=== PATIENT | female | born 1965 | race Caucasian/White ===

== ENCOUNTER 2016-06-28 19:31 | Emergency (ER) | payer OTHER ==
[2016-06-28 19:37] VITALS: RESP 17
[2016-06-28] MEDS ORDERED: IPRATROPIUM/ALBUTEROL 3 ML DEYVIAL IH ONE (20:00)
--- NOTE | 2016-06-28 20:02 | EDPHY ---
H & P Stated Complaint: persistent, painful cough x 1 week Time Seen by Provider: 06/28/16 19:55 HPI/ROS: CHIEF COMPLAINT: Cough HISTORY OF PRESENT ILLNESS: Patient is a 51-year-old female who comes to the emergency department complaining of persistent cough since Friday. She has had intermittent fevers as well as chest congestion. She denies chest pain shortness of breath. She denies sinus congestion. She does have mild ear pain. No abdominal pain. REVIEW OF SYSTEMS: Constitutional: denies: chills, fever, recent illness, recent injury EENTM: denies: blurred vision, double vision, nose congestion Respiratory: See HPI Cardiac: denies: chest pain, irregular heart rate, lightheadedness, palpitations Gastrointestinal/Abdominal: denies: abdominal pain, diarrhea, nausea, vomiting, blood streaked stools Genitourinary: denies: dysuria, frequency, hematuria, pain Musculoskeletal: denies: joint pain, muscle pain Skin: denies: lesions, rash, jaundice, bruising Neurological: denies: headache, numbness, paresthesia, tingling, dizziness, weakness Hematologic/Lymphatic: denies: blood clots, easy bleeding, easy bruising Immunologic/allergic: denies: HIV/AIDS, transplant EXAM: GENERAL: Well-appearing, well-nourished and in no acute distress. HEAD: Atraumatic, normocephalic. EYES: Pupils equal round and reactive to light, extraocular movements intact, sclera anicteric, conjunctiva are normal. ENT: TMs normal, nares patent, oropharynx clear without exudates. Moist mucous membranes. NECK: Normal range of motion, supple without lymphadenopathy or JVD. LUNGS: Rhonchi and left lower lobe, no wheezing HEART: Regular rate and rhythm without murmurs, rubs or gallops. ABDOMEN: Soft, nontender, normoactive bowel sounds. No guarding, no rebound. No masses appreciated. BACK: No CVA tenderness, no spinal tenderness, step-offs or deformities EXTREMITIES: Normal range of motion, no pitting or edema. No clubbing or cyanosis. NEUROLOGICAL: Cranial nerves II through XII grossly intact. Normal speech, normal gait. 5/5 strength, normal movement in all extremities, normal sensation PSYCH: Normal mood, normal affect. SKIN: Warm, dry, normal turgor, no visible rashes or lesions. Source: Patient, Family Exam Limitations: Language barrier (Daughter interpreting) - Personal History LMP (Females 10-55): Post Menopausal Current Tetanus/Diphtheria Vaccine: Yes Tetanus Vaccine Date: 2008 - Medical/Surgical History Hx Asthma: No Hx Chronic Respiratory Disease: No Hx Diabetes: Yes Hx Cardiac Disease: No Hx Renal Disease: No Hx Cirrhosis: No Hx Alcoholism: No Hx HIV/AIDS: No Hx Splenectomy or Spleen Trauma: No Other PMH: PMHx: HTN, Rheumatoid arthritis,diabetes, back pain. PSHx: cholecystectomy, L shoulder surgery, L foot surgery - Family History Significant Family History: Hypertension - Social History Smoking Status: Never smoked Alcohol Use: Sober Drug Use: None Constitutional: Initial Vital Signs Temperature (C) 36.2 C 06/28/16 19:32 Heart Rate 112 H 06/28/16 19:32 Respiratory Rate 17 06/28/16 19:32 Blood Pressure 197/113 H 06/28/16 19:32 O2 Sat (%) 97 06/28/16 19:32 O2 Delivery Mode Room Air Allergies/Adverse Reactions: Shellfish *RETIRED-02/10/12 [Shellfish] Allergy (Severe, Verified 08/06/15 17:41 ) Anaphylaxis SHRIMP Allergy (Severe, Uncoded 05/20/16 10:06) Anaphylaxis Home Medications: Medication Instructions Recorded Methotrexate 05/20/16 Oseltamivir Phosphate [Tamiflu 75 75 mg PO BID #10 cap 05/20/16 mg (RX)] Prednisone 05/20/16 metFORMIN HCL 05/20/16 AZITHROMYCIN [Z-PACK] 250 mg PO DAILY #4 tab 06/28/16 Medical Decision Making - Diagnostics Imaging: X-ray: chest x-ray was obtained. I viewed the images myself on the PACS system. My interpretation of the images is: Consistent with bronchitis. The radiologist interpretation is pending. ED Course/Re-evaluation: 8:30 p.m. we discussed the patient's x-ray results. She states that the albuterol did help. I will give her prescription for this as well as azithromycin. She is happy with this plan and declines any further workup or testing. She is well appearing. Differential Diagnosis: Partial list of the Differential diagnosis considered include but were not limited to; bronchitis, pneumonia, upper respiratory tract infection and although unlikely based on the history and physical exam, I also considered sepsis, acute coronary disease. I discussed these differential diagnoses and the plan with the patient as well as the usual and expected course. The patient understands that the diagnosis is provisional and that in medicine we are not always correct and that further workup is often warranted. Usual and customary warnings were given. All of the patient's questions were answered. The patient was instructed to return to the emergency department should the symptoms at all worsen or return, otherwise to followup with the physician as we discussed. - Data Points Medications Given: Discontinued Medications Albuterol Sulfate (Proventil Inh Prepack) 1 mdi TAKEHOME EDNOW ONE Stop: 06/28/16 20:32 Last Admin: 06/28/16 20:46 Dose: 1 mdi Albuterol/Ipratropium (Duoneb) 3 ml IH EDNOW ONE Stop: 06/28/16 20:01 Last Admin: 06/28/16 20:12 Dose: 3 ml Azithromycin (Zithromax) 500 mg PO EDNOW ONE PRN Reason: Protocol Stop: 06/28/16 20:30 Last Admin: 06/28/16 20:40 Dose: 500 mg Departure - Departure Disposition: Home, Routine, Self-Care Clinical Impression: Bronchitis Condition: Fair Instructions: Acute Bronchitis (ED), Albuterol (By breathing) Referrals: Josselin Booth MD [Primary Care Provider] - As per Instructions Prescriptions: AZITHROMYCIN [Z-PACK] 250 mg PO DAILY #4 tab Print Language: Bangladeshi
[2016-06-28] MEDS ORDERED: AZITHROMYCIN 250 MG TAB PO ONE (20:29)
[2016-06-28] MEDS ORDERED: ALBUTEROL INH PREPACK MDI TAKEHOME ONE (20:31)
--- NOTE | 2016-06-28 20:41 | DX ---
Chest, Two Views at 1939 hours History: Dyspnea. Comparison: May 2016 Findings: Cardiac silhouette is within normal range. Bilateral peribronchial thickening. No pneumonia , congestive heart failure, pleural effusion, or pneumothorax. Impression: 1. Bronchitis. 2. No definite pneumonia.
[2016-06-28 20:47] VITALS: BP 154/78; PULSE 110; TEMP 98.8; O2SAT 95
== END 2016-06-28 20:46 | disposition home or self-care (01) ==
DX: J20.9 Acute bronchitis, unspecified (principal); I10 Essential (primary) hypertension; E11.9 Type 2 diabetes mellitus without complications

== ENCOUNTER → 2016-07-15 | Outpatient (CLI) | payer OTHER ==
--- NOTE | 2016-07-15 17:18 | DX ---
Hip Unilateral Min 2 Views Left History: Left hip pain. Findings: Hip joint spaces are symmetric and normal. No fracture identified. Symphysis pubis and sacr oiliac joints appear unremarkable. Vascular calcifications are present in the proximal thighs bilater ally. Impression: Negative radiographs of the left hip.
== END ==
LOC: FIMAGING 15:58
PROVIDERS: ATTEND Family Medicine
DX: M25.552 Pain in left hip (principal)

== ENCOUNTER 2017-09-16 16:05 | Inpatient (IN) | payer OTHER ==
[2017-09-16] MEDS ORDERED: HYDROmorphONE/DILAUDID 1 MG/ML INJ IVP ONE (16:42)
[2017-09-16] MEDS ORDERED: HYDROmorphONE/DILAUDID 2 MG/ML INJ ONE (16:57)
[2017-09-16] MEDS ORDERED: DEXAMETHASONE 4 MG/ML VIAL IVP ONE (17:10)
[2017-09-16] MEDS ORDERED: DIAZEPAM 5 MG TAB PO ONE (17:10)
[2017-09-16] MEDS ORDERED: ACETAMINOPHEN 500 MG TAB PO ONE (17:10)
--- NOTE | 2017-09-16 17:16 | EDPHY ---
H & P Stated Complaint: back pain Source: Patient Exam Limitations: No limitations - Personal History LMP (Females 10-55): Post Menopausal Current Tetanus/Diphtheria Vaccine: Yes Current Tetanus Diphtheria and Acellular Pertussis (TDAP): Yes Tetanus Vaccine Date: 2008 - Medical/Surgical History Hx Asthma: No Hx Chronic Respiratory Disease: No Hx Diabetes: Yes Hx Cardiac Disease: No Hx Renal Disease: No Hx Cirrhosis: No Hx Alcoholism: No Hx HIV/AIDS: No Hx Splenectomy or Spleen Trauma: No Other PMH: PMHx: HTN, Rheumatoid arthritis,diabetes, back pain. PSHx: cholecystectomy, L shoulder surgery, L foot surgery, back surgery, - Family History Significant Family History: No pertinent family hx - Social History Smoking Status: Never smoked Alcohol Use: Sober Drug Use: None Time Seen by Provider: 09/16/17 16:58 HPI/ROS: CHIEF COMPLAINT: Back pain HISTORY OF PRESENT ILLNESS: Patient is a 52-year-old female with a history of back pain and sciatica and some kind of low back surgery in 2011. She has not followed up with a e learning specialist since then. She states that she has daily back pain radiating down her left leg but that today when she woke up from bed it was severe. She has not been able to stand up. She has not had any bowel or bladder incontinence but she did have back in 2012 prior to her previous surgery. She has not had a fever. She is diabetic. No IV drug abuse. No history of cancer. She states that she does not think her leg is weak but that it is in so much pain she cannot move it. She states that she also has some pain in her thoracic spine. REVIEW OF SYSTEMS: Constitutional: denies: chills, fever, recent illness, recent injury EENTM: denies: blurred vision, double vision, nose congestion Respiratory: denies: cough, shortness of breath Cardiac: denies: chest pain, irregular heart rate, lightheadedness, palpitations Gastrointestinal/Abdominal: denies: abdominal pain, diarrhea, nausea, vomiting, blood streaked stools Genitourinary: denies: dysuria, frequency, hematuria, pain Musculoskeletal: See HPI Skin: denies: lesions, rash, jaundice, bruising Neurological: denies: headache, numbness, paresthesia, tingling, dizziness, weakness Hematologic/Lymphatic: denies: blood clots, easy bleeding, easy bruising Immunologic/allergic: denies: HIV/AIDS, transplant EXAM: GENERAL: Crying, still in wheelchair. HEAD: Atraumatic, normocephalic. EYES: Pupils equal round and reactive to light, extraocular movements intact, sclera anicteric, conjunctiva are normal. ENT: TMs normal, nares patent, oropharynx clear without exudates. Moist mucous membranes. NECK: Normal range of motion, supple without lymphadenopathy or JVD. LUNGS: Breath sounds clear to auscultation bilaterally and equal. No wheezes rales or rhonchi. HEART: Regular rate and rhythm without murmurs, rubs or gallops. ABDOMEN: Soft, nontender, normoactive bowel sounds. No guarding, no rebound. No masses appreciated. BACK: No CVA tenderness, no spinal tenderness, step-offs or deformities EXTREMITIES: Pain radiating down left gluteus and posterior leg. Able to wiggle toes and has normal sensation bilaterally. Will not lift them off the wheelchair. Will not get out of the wheelchair onto the bed. Normal range of motion of upper extremities, no pitting or edema. Normal pulses. No clubbing or cyanosis. NEUROLOGICAL: Cranial nerves II through XII grossly intact. Normal speech. Is will not move legs because of pain. States that they do not feel weak., can wiggle toes, normal sensation diffusely PSYCH: Crying SKIN: Warm, dry, normal turgor, no visible rashes or lesions. (Jd Kothari) Constitutional: Initial Vital Signs Temperature (C) 37.2 C 09/16/17 16:11 Heart Rate 136 H 09/16/17 16:11 Respiratory Rate 20 09/16/17 16:11 Blood Pressure 185/110 H 09/16/17 16:11 O2 Sat (%) 96 09/16/17 16:11 O2 Delivery Mode Nasal Cannula O2 (L/minute) 2 Allergies/Adverse Reactions: Shellfish *RETIRED-02/10/12 [Shellfish] Allergy (Severe, Verified 09/16/17 16:10 ) Anaphylaxis SHRIMP Allergy (Severe, Uncoded 09/16/17 16:10) Anaphylaxis Home Medications: Medication Instructions Recorded Methotrexate Sodium [Rheumatrex] 6 each PO SA 05/20/16 metFORMIN HCL [Glucophage 1000 mg] 1,000 mg PO BIDMEAL 05/20/16 predniSONE [Christina] 7 mg PO DAILY18 05/20/16 oxyCODONE/APAP 5/325 [Percocet 2 tab PO DAILY 09/16/17 5/325 (*)] Carboxymethylcellulose 1% [Refresh 1 drop EACHEYE DAILY PRN 09/17/17 Celluvisc (*)] Certolizumab Pegol [CIMZIA] 0 mg SQ Q30D 09/17/17 Folic Acid [Folic Acid 1 MG (*)] 1 mg PO DAILY18 09/17/17 Insulin Aspart [novoLOG] 18 unit SC BIDMEAL 09/17/17 Insulin Detemir [Levemir] 20 units SQ DAILY 09/17/17 Insulin Detemir [Levemir] 30 unit SQ HS 09/17/17 Lisinopril [Zestril 20 mg (*)] 20 mg PO DAILY18 09/17/17 Simvastatin [Zocor] 20 mg PO DAILY18 09/17/17 Vitamin B Complex [Vitamin B 1 each PO DAILY 09/17/17 Complex (OTC)] oxyCODONE/APAP 5/325 [Percocet 1 tab PO HS PRN 09/17/17 5/325 (*)] Acetaminophen [Tylenol 325mg (*)] 650 mg PO Q4HRS PRN tab 09/18/17 Cyclobenzaprine [Flexeril 10 MG 10 mg PO BID PRN #20 tab 09/18/17 (*)] Gabapentin [Neurontin 300 MG (*)] 300 mg PO TID #90 cap 09/18/17 Ibuprofen [Motrin (*)] 600 mg PO TID PRN #60 tab 09/18/17 Medical Decision Making - Diagnostics EKG Interpretation: EKG interpreted by me shows sinus tachycardia with normal interval. Left axis deviation. QRS is otherwise normal there is no significant ST elevation or depression. No arrhythmia. Heart rate is 118 (Elijah Carvajal) Imaging Results: MRI of the thoracic spine is normal. Reviewed by me and discussed with Dr. Rivera MRI lumbar spine shows disc bulges at L3-4, L4-5 with some neural foraminal narrowing. Also disc bulge at L5-S1. No evidence for cauda equina syndrome. Again reviewed by me and discussed with Dr. Rivera (Elijah Carvajal) ED Course/Re-evaluation: Patient signed out to me by Dr. Kothari at 9:00 p.m.. We are awaiting results of lumbar and thoracic MRI. I saw the patient at 10:00 p.m. With shipping inspector Tara. Patient is found to be tachycardic at about 125 beats per minute. She tells me that she had an episode of chest discomfort while she was in the MRI machine but that she had been upset. She really does not have chest discomfort now or shortness of breath. However I reviewed her vital signs and from the initial triage the patient has been tachycardic. D-dimer and EKG were ordered by the nurse. Her D-dimer is found to be significantly elevated at 3.75. Patient is given a L of saline and CT angiogram of her chest is ordered as well as a troponin. The patient and family and I discussed this treatment plan. They express understanding and agreement Care is transferred to Dr. Marquez at 10:45 p.m. (Elijah Carvajal) 2224: Patient return from MRI noted to be tachycardic. Her back pain in the low lumbar region is improved with pain medicine here. However shortly after returning to MRI she did state to the nurse that she had some chest discomfort 3rd. This was very brief. However in the setting of chest pain and tachycardia a D-dimer was ordered and is positive. Will proceed with CT angiogram of the chest to make sure she does not have a pulmonary embolism. We did obtain an EKG The EKG shows sinus tachycardia rate of 118, no ST elevation no ST depression no significant T-wave abnormalities. Plan for this patient 2nd L fluid, check troponin and CT angiogram of the chest. 2318: CT angiogram of the chest shows no evidence of pulmonary embolism. This was called to me by Dr. Rivera. Patient's current heart rate down to 110 after 2nd L fluid. Oxygen saturation 96% on room air. Will re-evaluate in terms of low back pain. Troponin is negative. 2341: I did attempt to have this patient ambulate however her pain was too severe in her left lumbar region radiating down her left leg. No red flags. No bowel bladder incontinence no fever MRIs have been reviewed. Plan will be for admission to the hospital for intractable back pain despite prolonged ER course multiple pain medications. I updated the patient as well as the family at bedside they are comfortable with her being admitted for pain control and would prefer this rather than her going home. In terms of her chest pain her EKG is nonischemic troponin was negative. D- dimer was elevated but she has a negative pulmonary angiogram. She has not developed any worsening chest pain she is resting comfortably at this time. Spoke with the hospitalist service Dr. James who agrees to admit. (Naldo Marquez) Differential Diagnosis: Patient has exacerbation low back pain. There is no evidence for cauda equina syndrome. However the patient is persistently tachycardic in the emergency department. She has an elevated D-dimer. My concern is the patient also has pulmonary embolus. (Elijah Carvjaal) - Data Points Laboratory Results: Laboratory Results 09/16/17 16:40 09/16/17 16:40 Medications Given: Discontinued Medications Acetaminophen (Tylenol) 1,000 mg PO EDNOW ONE Stop: 09/16/17 17:11 Last Admin: 09/16/17 17:30 Dose: 1,000 mg Hydrocodone Bitart/Acetaminophen ([place] 5/325) 1 - 2 tab PO Q4HRS PRN PRN Reason: Pain, Moderate Able to Take PO Stop: 09/27/17 00:17 Last Admin: 09/17/17 07:11 Dose: 2 tab Atorvastatin Calcium (Lipitor) 10 mg PO DAILY18 JANE Stop: 03/16/18 17:59 Last Admin: 09/17/17 17:47 Dose: 10 mg Cyclobenzaprine HCl (Flexeril) 10 mg PO TID PRN PRN Reason: Spasms Stop: 03/16/18 08:59 Last Admin: 09/17/17 01:16 Dose: 10 mg Dexamethasone (Decadron Injection) 10 mg IVP EDNOW ONE Stop: 09/16/17 17:11 Last Admin: 09/16/17 17:31 Dose: 10 mg Diazepam (Valium) 5 mg PO EDNOW ONE Stop: 09/16/17 17:11 Last Admin: 09/16/17 17:31 Dose: 5 mg Fentanyl (Sublimaze) 0 mcg IVP ONCALL PRN PRN Reason: Per provider during procedure Stop: 09/17/17 19:27 Last Admin: 09/17/17 18:40 Dose: 75 mcg Folic Acid (Folic Acid) 1 mg PO DAILY18 [facility] Stop: 03/16/18 17:59 Last Admin: 09/17/17 17:48 Dose: 1 mg Gabapentin (Neurontin) 300 mg PO TID [facility] Stop: 03/16/18 08:59 Last Admin: 09/18/17 08:22 Dose: 300 mg Hydromorphone HCl (Dilaudid) 1 mg IVP EDNOW ONE Stop: 09/16/17 16:43 Last Admin: 09/16/17 17:01 Dose: 1 mg Hydromorphone HCl (Dilaudid) 1 mg IVP EDNOW ONE Stop: 09/16/17 23:36 Last Admin: 09/16/17 23:42 Dose: 1 mg Sodium Chloride (Ns) 1,000 mls @ 1,000 mls/hr IV EDNOW ONE PRN Reason: Protocol Stop: 09/16/17 19:33 Last Admin: 09/16/17 18:42 Dose: 1,000 mls Sodium Chloride (Ns) 1,000 mls @ 0 mls/hr IV ONCE ONE; Wide Open PRN Reason: Protocol Stop: 09/16/17 22:12 Last Admin: 09/16/17 22:37 Dose: 1,000 mls Insulin Human Lispro (Humalog Lispro) 0 unit SC TIDMEAL JANE PRN Reason: Protocol Stop: 03/16/18 07:59 Last Admin: 09/18/17 13:24 Dose: Not Given Insulin Human Lispro (Humalog Lispro) 0 unit SC HS JANE PRN Reason: Protocol Stop: 03/16/18 20:59 Last Admin: 09/18/17 01:10 Dose: Not Given Insulin Human Lispro (Humalog Lispro) 10 unit SC ONCE ONE Stop: 09/18/17 00:48 Last Admin: 09/18/17 01:13 Dose: 10 units Insulin Human Regular (Humulin R) 10 unit IVP EDNOW ONE Stop: 09/16/17 18:35 Last Admin: 09/16/17 18:41 Dose: 10 units Ketorolac Tromethamine (Toradol) 15 mg IVP EDNOW ONE Stop: 09/16/17 19:58 Last Admin: 09/16/17 20:06 Dose: 15 mg Ketorolac Tromethamine (Toradol) 15 mg IVP Q6HRS [facility] Stop: 09/19/17 00:01 Last Admin: 09/18/17 14:51 Dose: Not Given Lisinopril (Zestril) 20 mg PO DAILY18 JANE Stop: 03/16/18 17:59 Last Admin: 09/17/17 17:47 Dose: 20 mg Miscellaneous Medication (Insulin Detemir [Levemir]) 20 units SQ DAILY JANE Stop: 03/17/18 08:59 Last Admin: 09/18/17 09:06 Dose: 20 unit Miscellaneous Medication (Insulin Detemir [Levemir]) 30 unit SQ HS JANE Stop: 03/16/18 20:59 Last Admin: 09/17/17 22:25 Dose: 30 units Oxycodone/Acetaminophen (Percocet 5/325) 1 - 2 tab PO Q6H PRN; Protocol PRN Reason: Pain, Breakthrough Stop: 09/27/17 08:44 Last Admin: 09/18/17 13:55 Dose: 1 tab Prednisone (Prednisone) 5 mg PO DAILY18 JANE Stop: 03/16/18 17:59 Last Admin: 09/17/17 17:48 Dose: 5 mg Prednisone (Prednisone) 2 mg PO DAILY18 JANE Stop: 03/16/18 17:59 Last Admin: 09/17/17 18:21 Dose: 2 mg Vitamin B Complex (Vitamin B Complex) 1 ea PO DAILY JANE Stop: 03/16/18 08:59 Last Admin: 09/18/17 08:22 Dose: 1 ea Departure - Departure Disposition: [facility] Inpatient Acute Clinical Impression: Back pain Qualifiers: Back pain location: low back pain Chronicity: acute Back pain laterality: left Sciatica presence: with sciatica Sciatica laterality: sciatica of left side Qualified Code(s): M54.42 - Lumbago with sciatica, left side Condition: Good
[2017-09-16 17:52] LABS: PLATELET COUNT 343 10^3/uL (150-400)
[2017-09-16] MEDS ORDERED: INSULIN REGULAR HUMAN 100 UNIT/ML UNIT IVP ONE (18:34)
[2017-09-16] MEDS ORDERED: NS 1,000 ML IV ONE ×2 (18:34→22:11)
[2017-09-16] MEDS ORDERED: KETOROLAC 15 MG/1 ML SDV IVP ONE (19:57)
[2017-09-16] MEDS ORDERED: GADOBUTROL 10 ML VIAL IVP ONE (20:22)
--- NOTE | 2017-09-16 21:51 | CPEKG ---
Heart Rate: 118 RR Interval: 508 P-R Interval: 148 QRSD Interval: 70 QT Interval: 308 QTC Interval: 432 P [place]: 44 QRS [place]: 8 T Wave [place]: 44 EKG Severity - BORDERLINE ECG - EKG Impression: SINUS TACHYCARDIA EKG Impression: BORDERLINE T WAVE ABNORMALITIES Electronically Signed By: Elijah Carvajal 16-Sep-2017 22:49:53
[2017-09-16] MEDS ORDERED: IOPAMIDOL (ISOVUE 370) 100 ML BTL IV ONE (22:13)
[2017-09-16] MEDS ORDERED: HYDROmorphONE/DILAUDID 2 MG/ML INJ IVP ONE (23:35)
[2017-09-17] MEDS ORDERED: ONDANSETRON 4 MG/2 ML VIAL IVP PRN (00:18)
[2017-09-17] MEDS ORDERED: HYDROmorphone HCL/NS 0.5 MG/ML SYR IVP PRN ×2 (00:18→01:40)
[2017-09-17] MEDS ORDERED: ACETAMINOPHEN 325 MG TAB PO PRN (00:18)
[2017-09-17] MEDS ORDERED: CYCLOBENZAPRINE 10 MG TAB PO PRN (01:01)
[2017-09-17] MEDS: HYDROCODONE/APAP 5/325 TAB PO PRN ×2 (01:15→07:11)
[2017-09-17] MEDS ORDERED: D50W 25 GM/50 ML VIAL IVP PRN (01:37)
--- NOTE | 2017-09-17 01:52 | PDGENHP ---
History and Physical - Chief Complaint Back pain - History of Present Illness Source-patient provides history in Stat[employer]. She requests family translate but urgent care nurse practitioner available. I am able to communicate with the patient in limited Stateless myself. Case discussed with ED provider and EMR was reviewed. HPI - very pleasant 52-year-old female with past medical history significant for DM 2 on metformin, RA on DMARD therapy and reported injection therapy, HTN, chronic back pain/sciatica who presents to the emergency department earlier in the day with complaints of acute on chronic low back pain with groin pain. Patient denies any acute injuries or trauma. She states she was in her usual state of health yesterday until sometime in the latter morning or early afternoon patient reports she got up and went to the kitchen to make herself some morning coffee she sat down and was doing fine until she tried to get up from her chair at which point she states that she felt a pop in her lower back with subsequent radiating pain into her groin bilaterally as well as down her left buttock to her knee. Patient denies any falls. She has not had any fevers but has had some chills today. No nausea vomiting. No cough shortness of breath. No abdominal pain or diarrhea. No dysuria or hematuria. Patient reports that her pain was so severe that she could no longer stand on her own or get up. Patient denies any bowel or bladder retention or incontinence. Patient does note a little bit of change in sensation to her left anteromedial thigh. History Information - Allergies/Home Medication List Allergies/Adverse Reactions: Shellfish *RETIRED-02/10/12 [Shellfish] Allergy (Severe, Verified 09/16/17 16:10 ) Anaphylaxis SHRIMP Allergy (Severe, Uncoded 09/16/17 16:10) Anaphylaxis Home Medications: Methotrexate 05/20/16 [Last Taken Unknown] Prednisone 05/20/16 [Last Taken Unknown] metFORMIN HCL 05/20/16 [Last Taken Unknown] Oxycodone HCl 09/16/17 [Last Taken Unknown] I have personally reviewed and updated: family history, medical history, social history, surgical history - Past Medical History degenerative disc disease, diabetes type 2, hypertension Additional medical history: RA, chronic back pain/sciatica - Surgical History Reports: cholecystectomy Additional surgical history: Cholecystectomy, x2, lumbar spine surgery , left shoulder surgery, left foot surgery - Family History Additional family history: RA, dm 2 - Social History Smoking Status: Never smoked Alcohol Use: None Drug Use: None Additional social history: Patient is lives with her spouse and children. Cor status-full. Review of Systems Review of Systems: ROS: 10pt was reviewed & negative except for what was stated in HPI & below Constitutional: Reports: chills, weakness (See HPI). Denies: fever, recent illness EENMT: Reports: other (No nasal discharge.). Denies: blurred vision, nose congestion, sore throat Cardiac: Reports: no symptoms. Denies: chest pain, palpitations Respiratory: Reports: no symptoms. Denies: cough, shortness of breath, wheezing Gastrointestinal: Reports: no symptoms. Denies: vomitting, abdominal pain, diarrhea, nausea Genitourinary: Denies: dysuria, hematuria Muscolosketal: Reports: back pain, other (Groin pain see HPI). Denies: joint pain Skin: Reports: no symptoms. Denies: change in color, lesions, rash Neurological: Reports: no symptoms, numbness, weakness. Denies: anxiety, depressed, headache, tremors Hematologic/Lymphatic: Denies: anemia, blood clots Physical Exam Physical Exam: Selected Entries 09/16/17 16:11 Blood Pressure Automatic Method Heart Rate 136 H Respiratory 20 Rate O2 Sat (%) 96 Temperature (C) 37.2 C Blood Pressure 185/110 H Mean Arterial 135 H Pressure (MAP) O2 Delivery Room Air Mode Temperature Oral Source Temp Pulse Resp BP Pulse Ox 36.9 C 108 H 18 142/79 H 96 09/17/17 00:55 09/17/17 00:55 09/17/17 00:55 09/17/17 00:55 09/17/17 00:55 O2 (L/minute) 2 Constitutional: appears nourished, uncomfortable, other (Patient without any acute distress while lying still. She does appear uncomfortable with any kind of movement and in with increased in distress and respiratory effort.) Eyes: PERRL, anicteric sclera, EOMI, No scleral injection Ears, Nose, Mouth, Throat: moist mucous membranes, other (No nasal discharge.), No poor dentition Cardiovascular: no murmur, rub, or gallop, pulses symmetric bilaterally, tachycardia, edema (Trace bilateral lower extremity.), other (Regular rhythm.) Peripheral Pulses: 1+: dorsalis-pedis (R), dorsalis-pedis (L) Respiratory: no respiratory distress (Patient with increased work of breathing with complaints of pain and movement.), clear to auscultation, No reduced air movement, No expiratory wheeze, No inspiratory crackles Gastrointestinal: normoactive bowel sounds, soft, non-tender abdomen, no palpable masses, other (Obese abdomen.), No guarding, No distension Genitourinary: no bladder tenderness, other (Patient with complaints of left greater than right flank pain question of superficial CVA tenderness.), No plaza in urethra Skin: warm, other (Patient with the facial flushing which is new), No erythema, No rash Musculoskeletal: muscular tenderness (Multiple trigger points bilateral buttock. Left trochanteric bursa. And bilateral groin over the insertion sites of the adductors.) Neurologic: AAOx3, sensation intact bilaterally, weakness (Patient unable to complete straight leg raises secondary to complaints of pain in her groin and weakness of her lower extremities..), numbness (Tingling left anteromedial thigh with decreased sensation on the left compared to the right.), CN II-XII Intact, No facial droop Psychiatric: interacting appropriately, thought process linear, anxious, other ( Patient thought process and content questions are appropriate.), No depressed, No poor insight, No poor judgement, No poor memory Lab Data & Imaging Review 09/16/17 16:40 09/16/17 16:40 WBC 14.56 10^3/uL (3.80-9.50) H 09/16/17 16:40 RBC 4.51 10^6/uL (4.18-5.33) 09/16/17 16:40 Hgb 12.8 g/dL (12.6-16.3) 09/16/17 16:40 Hct 40.4 % (38.0-47.0) 09/16/17 16:40 MCV 89.6 fL (81.5-99.8) 09/16/17 16:40 MCH 28.4 pg (27.9-34.1) 09/16/17 16:40 MCHC 31.7 g/dL (32.4-36.7) L 09/16/17 16:40 RDW 15.5 % (11.5-15.2) H 09/16/17 16:40 Plt Count 343 10^3/uL (150-400) 09/16/17 16:40 MPV 9.6 fL (8.7-11.7) 09/16/17 16:40 Neut % (Auto) 82.7 % (39.3-74.2) H 09/16/17 16:40 Lymph % (Auto) 12.8 % (15.0-45.0) L 09/16/17 16:40 [place] % (Auto) 3.4 % (4.5-13.0) L 09/16/17 16:40 Eos % (Auto) 0.4 % (0.6-7.6) L 09/16/17 16:40 Baso % (Auto) 0.3 % (0.3-1.7) 09/16/17 16:40 Nucleat RBC Rel Count 0.0 % (0.0-0.2) 09/16/17 16:40 Absolute Neuts (auto) 12.05 10^3/uL (1.70-6.50) H 09/16/17 16:40 Absolute Lymphs (auto) 1.86 10^3/uL (1.00-3.00) 09/16/17 16:40 Absolute Monos (auto) 0.49 10^3/uL (0.30-0.80) 09/16/17 16:40 Absolute Eos (auto) 0.06 10^3/uL (0.03-0.40) 09/16/17 16:40 Absolute Basos (auto) 0.04 10^3/uL (0.02-0.10) 09/16/17 16:40 Absolute Nucleated RBC 0.00 10^3/uL (0-0.01) 09/16/17 16:40 Immature Gran % 0.4 % (0.0-1.1) 09/16/17 16:40 Immature Gran # 0.06 10^3/uL (0.00-0.10) 09/16/17 16:40 D-Dimer 3.75 ug/mLFEU (0.00-0.50) H 09/16/17 21:33 Sodium 139 mEq/L (135-145) 04/17/18 16:40 Potassium 4.0 mEq/L (3.5-5.2) 09/16/17 16:40 Chloride 102 mEq/L (97-110) 09/16/17 16:40 Carbon Dioxide 24 mEq/l (22-31) 09/16/17 16:40 Anion Gap 13 mEq/L (8-16) 09/16/17 16:40 BUN 22 mg/dL (7-23) 09/16/17 16:40 Creatinine 1.0 mg/dL (0.6-1.0) 09/16/17 16:40 Estimated GFR 58 09/16/17 16:40 Glucose 371 mg/dL (70-100) H 09/16/17 16:40 POC Glucose 187 mg/dL (70-100) H 09/16/17 19:39 Calcium 10.0 mg/dL (8.5-10.4) 09/16/17 16:40 Troponin I < 0.012 ng/mL (0.000-0.034) 09/16/17 22:38 Imaging Review: MRI of the Lumbar Spine (Without and With Contrast) 2010 hours Clinical Indications: Severe back pain. Unable to stand. Rule out tumor or abscess. Technique: Sagittal and axial T1 and T2 MR sequences of the lumbar spine without contrast. Axial imaging from T12 through the mid sacrum. Post contrast sagittal and axial T1-weighted images with the uneventful intravenous administration of 6.0 mL of Gadavist also performed. Findings: Lumbar vertebral bodies are of normal height without compression fractures. Conus medullaris appears normal and ends at L1 inferior endplate. Bone marrow signal is normal. No significant abnormal enhancing lesions are evident. T12-L1: No disk herniation or stenosis. L1-L2: No disk herniation or stenosis. L2-L3: No disk herniation or stenosis. L3-L4: No desiccation or loss of disk height. There is mild to moderate left posterior lateral disk protrusion contributing to moderate left-sided neuroforaminal stenosis without spinal stenosis. L4-L5: No desiccation or loss of disk height. There is moderate left paracentral to posterior lateral disk protrusion that contributes to moderate left-sided neuroforaminal stenosis and left lateral recess stenosis with compression upon the left L4 and L5 nerve roots. There is borderline spinal stenosis. L5-S1: Marked disk space narrowing with desiccation and loss of disk height. There is dominant anterior disk bulge with associated anterior osteophytes as well as moderate posterior disk bulge thinning into the anterior epidural fat with only mild compression upon the dural sac. There is bilateral severe neuroforaminal stenosis secondary to disk bulge and marginal osteophytes with only mild facet hypertrophy. There is mild spinal stenosis. Impression: 1. No significant abnormal enhancement associated with the vertebral bodies or spinal canal. 2. Disk protrusion more prominent left paracentral to posterior laterally at L3- L4 and L4-L5 as detailed above. 3. Marked degenerative disk disease at L5-S1 with associated marked bilateral neural foraminal stenosis. Please see findings at specific disk levels. These findings were discussed by telephone with Dr. Elijah Carvajal at 2145 hrs. MRI of the Thoracic Spine (Without and With Contrast) 2009 hours Reason for examination: Severe mid and low back pain. Unable to stand. Rule out abscess or mass. Technique: Sagittal T1, FSE T2 2nd echo with fat suppression and STIR imaging. Axial T1 and FSE T2 2nd echo imaging with fat suppression. Postcontrast T1 sagittal with fat saturation and T1 axial imaging were obtained after the administration of 6 mL Gadavist IV contrast. Findings: Thoracic alignment is anatomic. Disk spaces are well-maintained. There is no evidence of focal disk bulge or protrusion. The thoracic neural canal is normal in size. The thoracic cord is normal. No abnormal intramedullary or extramedullary enhancing lesions are seen. The conus appears normal. Thoracic foramen are widely patent. Impression: Normal MRI of the thoracic spine. CT Pulmonary Angiogram 2251 hours Clinical Indications: Dyspnea Technique: Thinly collimated multidetector helical CT imaging was performed through the chest while 75 mL Isovue-370 were injected intravenously without complication. The images were reconstructed in multiple planes. Dose reduction techniques were utilized. Findings: CT Angiogram: There is no evidence of intraluminal thrombus within the pulmonary arterial system. The thoracic aorta has a normal contour without evidence of aneurysm or dissection. There is no pericardial effusion. The cardiac chambers are normal in appearance. CT Chest: The lungs are clear without infiltrate or effusion. There is poor inspiration with compressive changes at the lung bases. There may be some air trapping or patchy areas of groundglass attenuation. There are no significant pulmonary nodules. There is a 5 mm calcified granuloma at the right lung base. Calcified right hilar nodes are also evident. Soft tissues are unremarkable. The visualized upper abdominal structures are unremarkable during arterial phase of imaging. Skeletal system: Vertebral body heights are well-maintained. There are no lytic or sclerotic osseous lesions. Impression: 1. No evidence of pulmonary embolus using CT protocol. 2. Relatively poor inspiration. 3. Patchy areas of groundglass attenuation mostly at the lung bases. Some of this could be related to compressive changes. Consider possibility of pneumonitis or dependent edema less likely. These findings were discussed by telephone with Dr. Naldo Marquez at 23:15 hour, 09/16/2017. Visualized and Interpreted Chest x-ray results: Yes Visualized and Interpreted EKG results: Yes EKG additional interpertation: Sinus tachycardia in the 110s. No acute ST elevations or depressions. Nonspecific T-wave changes in lead 3, aVL, V6. QTC is 432. Assessment & Plan Assessment: 52-year-old female with history of RA, dm 2, chronic back pain and sciatica who presents to the ED with complaints of sudden acute on chronic low back pain without trauma. #Acute on chronic low Back pain (Acute), sciatica - patient with multiple trigger points and soft tissue pain including over the left trochanteric bursa, paraspinous muscles with spasm. Patient without any urinary or fecal retention/ incontinence and no signs of cauda equina syndrome. Continue with conservative management including heat, muscle relaxants, PT and OT. MRI of thoracic spine was negative for acute findings. MRI of the lumbar spine did show marked degenerative disc disease and foraminal stenosis L5-S1 with mild spinal stenosis. Consider NSAID use she after a.m. BMP as patient with some mild acute kidney insufficiency and just received contrast load. Patient received 15 mg dosing of Toradol in the emergency department. Patient is on DMARD therapy and possibly immunosuppressant injection. Consider steroid dosing or injection if patient continues to have poor improvement and/or surgical evalu as per day team. #SIRS - patient with a leukocytosis of 15,000 and tachycardia. Suspect this is related to her acute pain. Patient is complaining of left greater than right back pain given that she is on DMARDs and possibly an immunosuppressant therapy will plan to obtain a UA to rule out any source of infection. Patient denies any symptoms of cough rhinorrhea dysuria or other rashes or sores. CTA of the chest was negative for any evidence of PE. She did have some ground-glass opacities on imaging however she has not had any fever, cough or other respiratory symptoms. Will plan to monitor at this time. Patient is status post several L of IV fluids in the emergency department. She is currently tolerating oral hydration and blood pressures are acceptable at this time. Plan to monitor closely. Will obtain cultures if patient develops any fevers. #RA - patient is on DMARD therapy and reports that she is taking weekly injections but cannot recall the name of the medication at this time. Will try to clarify tomorrow. #Dm 2 uncontrolled - patient with elevated blood sugars. She received 10 units of insulin in the emergency department with appropriate response. Will plan to hold patient's metformin for 48 hr post contrast load. Continue with a regular low dose sliding scale with meals and low-dose at HS. #Benign essential hypertension - blood pressures are slightly elevated but suspect a large component related to her pain. Medication list is not yet reconciled however there are no antihypertensive medications listed as of yet. Will have hydralazine available p.r.n. For significantly elevated blood pressures after pain has been adequately treated. FEN - status post IV fluid in the emergency department. Patient is tolerating oral hydration at this time will continue to encourage. Monitor electrolytes replace if needed. ADA diet ordered. PPX-SCDs were ordered however patient is not able to tolerate at this time. Lovenox daily. Cor status-full Disposition-patient admitted to observation on the medical floor at this time pending PT/OT evaluation.
[2017-09-17] MEDS ORDERED: hydrALAZINE 20 MG/ML VIAL IVP PRN (02:36)
[2017-09-17 05:26] LABS: PLATELET COUNT 301 10^3/uL (150-400)
[2017-09-17] MEDS: INSULIN LISPRO 100 UNIT/ML SC SCH ×3 (08:28→22:24)
[2017-09-17] MEDS ORDERED: CARBOXYMETHYLCELLULOSE 1% 0.4 ML DROPERETTE EACHEYE PRN (08:32)
[2017-09-17] MEDS ORDERED: OXYCODONE/APAP 5/325 TAB PO PRN (08:32)
--- NOTE | 2017-09-17 08:57 | HOSPPROG ---
Hospitalist Progress Note Assessment/Plan: 52-year-old female with history of RA, dm 2, chronic back pain and sciatica who presents to the ED with complaints of sudden acute on chronic low back pain without trauma. #Acute on chronic low Back pain (Acute), sciatica - No urinary or fecal incontinence and no signs of cauda equina syndrome. MRI of thoracic spine clear. MRI L-spine shows L4-5 and L5-S1 disc bulge with foraminal stenosis and nerve root compression. -discussed case with neurosurg, likely to proceed with conservative management. NS will consult -Add IV toradol and neurontin for neuropathic pain -PT/OT -consider MARIANA via IR if symptoms not improving today with above measures. Some concern for hyperglycemia with further steroids. #SIRS - patient with a leukocytosis and tachycardia. Likely pain / steroid related. No fevers or e/o infection. CTA of the chest negative for PE. HR improved. -trend wbc's #RA - patient is on DMARD therapy and reports that she is taking weekly injections, need med clarification. #Dm 2 uncontrolled - patient with elevated blood sugars. -Hold metformin for 72 hr post contrast load. -resume glargine, SSI, up-titrate as indicated #Benign essential hypertension - cont home lisinopril, prn hydral PPX- Lovenox daily, hold tomorrow for possible MARIANA Cor status-full Disposition- change to inpt for acute PT/OT needs, pain control and possible IR intervention Subjective: Pt feels a little better. C/O ongoing left buttock / sciatic nerve pain and endorses foor drop. No fevers/chills. No CP, SOB or cough. Objective: Vital Signs Temp Pulse Resp BP Pulse Ox 36.9 C 85 16 125/65 H 92 09/17/17 07:29 09/17/17 07:29 09/17/17 07:29 09/17/17 07:29 09/17/17 07:29 Laboratory Results 09/17/17 04:47 09/17/17 04:47 09/16/17 09/17/17 09/18/17 05:59 05:59 05:59 Intake Total 2300 Output Total 400 Balance 2300 -400 - Physical Exam Constitutional: no apparent distress Eyes: PERRL Ears, Nose, Mouth, Throat: moist mucous membranes Cardiovascular: regular rate and rhythym Respiratory: no respiratory distress, clear to auscultation Gastrointestinal: normoactive bowel sounds, soft, non-tender abdomen Skin: warm Musculoskeletal: other (LLE proximal weakness, absent DTR's patella b/l) Neurologic: AAOx3 Psychiatric: interacting appropriately ICD10 Worksheet Patient Problems: Problems Problem Status Onset Back pain Acute
[2017-09-17] MEDS ORDERED: OXYCODONE/APAP 5/325 TAB PO SCH (09:00)
--- NOTE | 2017-09-17 09:25 | PDMN ---
Medical Necessity Medical necessity: M160 sepsis and other febrile illness- SIRS- tachycardia with leukocytosis. back pain -acute, sciatica- neurosgy consult pend. , anticipate > 2 midnights ongoing med nec care- PT/OT, IV pain meds, poss IR intervention,. PMH- RA, DM, benign HTN,
[2017-09-17] MEDS: GABAPENTIN 300 MG CAP PO SCH ×2 (09:41→17:48)
[2017-09-17] MEDS: VITAMIN B COMPLEX 1 EA CAP/TAB PO SCH (09:42)
--- NOTE | 2017-09-17 10:24 | ASMTCMCOM ---
CM Note CM Note Notes: Patient admitted for intractable back pain, found to have a bulging disc at L5-S1. The plan, for now, is conservative management with PT/OT and pain medications. Patient lives with her and children and has other supportive family members. She is uninsured and was screened for Emergency Medicaid. PT has recommended that she go home with family; if any discharge needs arise, we will try to help. Date Signed: 09/17/2017 10:23 AM Electronically Signed By:Jamila Rangel RN
[2017-09-17] MEDS: KETOROLAC 15 MG/1 ML SDV IVP SCH ×3 (10:30→17:47)
--- NOTE | 2017-09-17 12:41 | GCON ---
[f rep st] CONSULTATION CONSULTATION/HISTORY AND PHYSICAL CHIEF COMPLAINT: Back pain with left lower extremity pain, mainly with mild right lower extremity pa in. HISTORY OF PRESENT ILLNESS: The patient is a 52-year-old female with a past medical history signific ant for type 2 diabetes that is on metformin. She has a history of rheumatoid arthritis, on DMARD era and reported injection therapy. She also has a history of hypertension, chronic back pain, and sciatica, who presented to the emergency department with acute onset of lower back pain and left low er extremity pain. She states that she has had these symptoms for approximately 5 years. They have been well controlled with therapy on her own and pills that she could not elaborate on. Yesterday, t he symptoms increased. She describes symptoms mainly in the left lower leg, in the left buttock, lat eral thigh, and hamstring down into the calf. She has minimal symptoms on the right side. The patie nt was seen by Internal Medicine after the emergency room physician visited with her and was admitted for pain control. The patient denies any bowel or bladder problems. No numbness, tingling, or pain in the groin. No saddle numbness. She is able to walk, but the symptoms in the left lower extremit y increased. PAST MEDICAL HISTORY: 1. Degenerative disk disease of the lumbar spine. 2. Type 2 diabetes. 3. Hypertension. HOME MEDICATIONS: Methotrexate, prednisone, metformin, and oxycodone. ALLERGIES: Shellfish and shrimp. No allergies to any medications listed. SURGICAL HISTORY: Cholecystectomy, x2, prior lumbar surgery (unable to elaborate), left sh oulder surgery, left foot surgery. FAMILY HISTORY: Diabetes type 2 and rheumatoid arthritis. SOCIAL HISTORY: Patient does not drink. Does not use any alcohol. She lives in [place] and is kim ied. IMMUNIZATIONS: Reported up to date. TRAVEL: No recent travel. REVIEW OF SYSTEMS: Complete 10-point review of systems was negative except for what is stated in HPI . PHYSICAL EXAMINATION: GENERAL: This is an awake, alert, oriented female in no acute distress. FELIPE L SIGNS: Most recent vital signs: Blood pressure 134/66 with a MAP of 88, 86 heart rate, 16 respira tions, 91% on nasal cannula, 36.6 temperature. HEENT: Head is normocephalic, atraumatic. Pupils ar e equal, round, reactive to light. EOMI is intact. Full visual saleh by confrontation. Ears are p atent. Nose is patent. NECK: Soft, supple. No midline tenderness. Full range of motion in flexio n, extension, lateral bending, and rotation. RESPIRATORY: Deferred. CARDIAC: Deferred. ABDOMEN: Soft, nontender. No peritoneal signs. : Deferred. RECTAL: Deferred. NEURO: Patient is awake , alert, oriented to name, place, location, date, time, and situation. Memory is intact to immediate , past, and current events. Speech: No aphasia, dysarthria, or dysphonia. Cranial nerves 2-12 sarita sly intact. Motor: Patient has 5/5 strength in all muscle groups of bilateral upper and lower extre mities to include deltoids, biceps, triceps, brachioradialis, wrist flexors and extensors, planning supervisor intri nsic fingers, iliopsoas, quadriceps, hamstring, plantar flexion, dorsiflexion, EHL testing with the e xception of left EHL at 4/5. Sensation is grossly intact to light touch throughout all dermatome dis tributions of upper extremities. Negative straight leg raise. Negative SUBHASH test. Reflexes of the biceps, triceps, brachioradialis, knee jerk, and ankle jerk are 2+/4. Toes are downgoing bilaterall y. Clark's negative. Babinski's negative. No evidence of clonus. MEDICAL DECISION MAKING/DIAGNOSTIC STUDIES: Laboratory tests obtained 09/17/2017, shows a white coun t of 19.32 with an H and H of 10.5 and 32.6 with a platelet count of 301. Coags on 09/16/2017 show a D-dimer of 3.75. A CT scan of the chest, PE study, was negative. Chemistry obtained 09/17/2017, sh ows sodium 141, potassium 4.1, chloride 111, 22 for CO2, BUN 15, creatinine 0.7, and glucose 312. Imaging: Lumbar spine MRI and thoracic spine MRI obtained. Thoracic MRI obtained on 09/16/2017 was normal. There was no obvious compression or stenosis noted. 09/16/2017, lumbar spine MRI that was o btained that shows [id number] left posterolateral disk protrusion on the left at L3-4, moderate left-sided neural foraminal stenosis at L4-5. There is moderate left paracentral to posterior later al disk protrusion that contributes to moderate left-sided neural foraminal stenosis, left lateral re cess with compression on the left L4 and L5 nerves. L5-S1 shows marked disk space narrowing, degener ative changes, and desiccation of the disk height. There is dominant anterior disk bulges with assoc iated anterior osteophytes as well as moderate posterior disk bulges. There is bilateral severe neur al foraminal stenosis secondary to disk bulge and marginal osteophytes. IMPRESSION: 1. Back pain with bilateral lower extremity pain with left leg much worse than the right. 2. History of diabetes that is controlled with diet. 3. Lumbar stenosis, left L3-4, 4-5, and bilateral L5-S1. PLAN/DISCUSSION: The patient is a 52-year-old female. Her history and physical exam was done with Yeny amaya. I did review her images with Dr. Pabon, who has seen and evaluated the pat ient as well. I spoke with Internal Medicine, and they are okay with an epidural steroid injection f or her, and we will adjust her medications as needed for her blood sugar control. I recommended a ca udal injection for her as she does have left-sided stenosis at 3-4, 4-5, and bilaterally at L5-S1. I reviewed this with the patient. She is in agreement with injections. We will see how she does with this and likely follow up with her as an outpatient in our clinic. We talked about worsening sympto ms, new pain, weakness, numbness, tingling, loss of bowel or bladder control as immediate notificatio n of our office. All questions and concerns were answered. The patient understands and agrees. /[id number]/MODL
[2017-09-17] MEDS ORDERED: PREDNISONE 7 MG PO SCH (18:00)
[2017-09-17] MEDS ORDERED: NON-FORMULARY NEW DRUG (Simvastatin [Zocor] 20 MG) PO SCH (18:00)
[2017-09-17] MEDS ORDERED: ATORVASTATIN CALCIUM 10 MG TAB PO SCH (18:00)
[2017-09-17] MEDS ORDERED: predniSONE 1 MG TAB PO SCH (18:00)
[2017-09-17] MEDS ORDERED: FOLIC ACID 1 MG TAB PO SCH (18:00)
[2017-09-17] MEDS ORDERED: predniSONE 5 MG TAB PO SCH (18:00)
[2017-09-17] MEDS ORDERED: LISINOPRIL 20 MG TAB PO SCH (18:00)
[2017-09-17] MEDS ORDERED: fentaNYL 100 MCG/2 ML INJ ONE (18:21)
[2017-09-17] MEDS ORDERED: MIDAZOLAM 2 MG/2 ML VIAL IVP PRN (18:26)
[2017-09-17] MEDS ORDERED: FLUMAZENIL 0.5 MG/5 ML MDV IVP PRN (18:26)
[2017-09-17] MEDS ORDERED: MEPERIDINE 25 MG/ML SYR IVP PRN (18:26)
[2017-09-17] MEDS ORDERED: NALOXONE HCL 0.4 MG/ML INJ IVP PRN (18:26)
[2017-09-17] MEDS ORDERED: fentaNYL 100 MCG/2 ML INJ IVP PRN (18:26)
[2017-09-17] MEDS ORDERED: NS 1,000 ML IV SCH (18:30)
--- NOTE | 2017-09-17 18:48 | PDRADPN ---
Radiology Procedure Note Date of Procedure: 09/17/17 Radiologist: Cynthia Solorzano Pre-op Diagnosis: lower lumbar DJD Post-op Diagnosis: same Indication: pain Procedure: L5-S1 MARIANA Inf/Abcess present in the surg proc area at time of surgery?: No Complications: none
[2017-09-17] MEDS ORDERED: TRIAMCINOLONE ACETONIDE 200 MG/5 ML MDV IM ONE (19:04)
[2017-09-17] MEDS ORDERED: LIDOCAINE 1% 300 MG/30 ML SDV ONE (19:04)
[2017-09-17] MEDS ORDERED: IOPAMIDOL (ISOVUE-M 300) 15 ML VIAL ONE (19:05)
[2017-09-17] MEDS ORDERED: INSULIN DETEMIR 30 UNIT SQ SCH (21:00)
[2017-09-17] MEDS ORDERED: INSULIN LISPRO 100 UNIT/ML SC SCH (21:00)
[2017-09-17] MEDS ORDERED: INSULIN GLARGINE 100 UNITS/ML UNIT SC SCH (21:00)
[2017-09-18] MEDS: KETOROLAC 15 MG/1 ML SDV IVP SCH ×3 (00:20→14:51)
[2017-09-18] MEDS: GABAPENTIN 300 MG CAP PO SCH ×2 (00:22→08:22)
[2017-09-18] MEDS ORDERED: INSULIN LISPRO 100 UNIT/ML SC ONE (00:47)
[2017-09-18 06:16] LABS: PLATELET COUNT 323 10^3/uL (150-400)
--- NOTE | 2017-09-18 07:30 | SOAPPROG ---
[facility] Progress Note Assessment/Plan: Assessment: 52 yo F with low back pain and radicular symptoms likely related to her L5/S1 DJD/HNP and left L4/5 far lateral disc herniation Plan: neuro: stable and doing well overall, pain improved a bit today :) discussed with patient and family that it can take 7-10 days for MARIANA to fully work continue PT/OT ok to discharge home when cleared by IM follow up with DR Ivy in 2-3 weeks, to schedule appointment please call with neuro changes discussed with Dr Ivy 09/18/17 07:25 Subjective: leg and back pain is a bit better today, no weakness. no Bowel/bladder changes Objective: Vital Signs Temp Pulse Resp BP Pulse Ox 36.8 C 82 18 120/68 91 L 09/18/17 04:00 09/18/17 04:00 09/18/17 04:00 09/18/17 04:00 09/18/17 04:00 Laboratory Results 09/18/17 04:38 09/17/17 04:47 09/17/17 09/18/17 09/19/17 05:59 05:59 05:59 Intake Total 2300 130 Output Total 1300 Balance 2300 -1170 AAOx4, +FC PERRL, EOMI no facial droop 5/5 + light touch ICD10 Worksheet Patient Problems: Problems Problem Status Onset Back pain Acute
[2017-09-18] MEDS: VITAMIN B COMPLEX 1 EA CAP/TAB PO SCH (08:22)
[2017-09-18] MEDS: OXYCODONE/APAP 5/325 TAB PO PRN ×2 (08:30→13:55)
[2017-09-18] MEDS ORDERED: INSULIN DETEMIR 20 UNIT SQ SCH (09:00)
[2017-09-18] MEDS ORDERED: INSULIN GLARGINE 100 UNITS/ML UNIT SC SCH (09:00)
[2017-09-18] MEDS: INSULIN LISPRO 100 UNIT/ML SC SCH ×2 (09:06→13:24)
[2017-09-18 12:15] VITALS: BP 151/77
--- NOTE | 2017-09-18 13:36 | GDS ---
[f rep st] DISCHARGE SUMMARY DISCHARGE DIAGNOSES: 1. Lumbar disk herniation with radiculopathy. 2. Rheumatoid arthritis. 3. Diabetes mellitus type 2. 4. Hypertension. CONSULTANTS: Todd Duran PA-C, Neurosurgery. IMAGING STUDIES/PROCEDURES: 1. Lumbar spine MRI, September 16, 2017, showed disk protrusion at L3-L4 and L4-L5 contributing to moder ate left-sided neuroforaminal stenosis without spinal stenosis at L3-L4. However, borderline spinal stenosis is noted at L4-L5 with compression upon the left L4 and L5 nerve roots as well as mild spina l stenosis at L5-S1. 2. Thoracic spine MRI, September 16, 2017, was normal. 3. CT pulmonary angiogram, September 16, 2017, was negative for pulmonary embolism. HISTORY: For details, please see the history and physical dated September 17, 2017. In brief, the patie analy is a 52-year-old female with history of diabetes, hypertension, and chronic low back pain who pres ented to the emergency department with severe sciatic nerve pain. She was admitted to the hospital f or further management. HOSPITAL COURSE: The patient was admitted to the med/surg unit for pain control and physical therapy . She underwent epidural spinal injection which did provide significant improvement in her pain synd jaelyn. She was started on gabapentin for neuropathic pain, and will continue Tylenol and anti-inflamm atories for ongoing pain management. In addition, she was given Flexeril p.r.n. for muscle spasms. She is able to ambulate independently and is stable for discharge home with close outpatient followup . DISPOSITION: The patient is discharged home in stable condition. FOLLOWUP: 1. Josselin Booth MD, primary care. 2. Todd Duran PA-C, Neurosurgery. DISCHARGE MEDICATIONS: Please see [facility] for completed outpatient medication list. New medications on discharge include: 1. Tylenol 650 mg p.o. q.4 hours p.r.n. 2. Ibuprofen 600 mg p.o. t.i.d. p.r.n. 3. Gabapentin 300 mg p.o. t.i.d., #90, no refills. 4. Flexeril 10 mg p.o. b.i.d. p.r.n., #20, no refills. She will continue all other outpatient medications as previously prescribed. /[id number]/MODL
== END 2017-09-18 15:00 | disposition home or self-care (01) | DRG 552 ==
LOC: OBSVTOIN 23:40 → F3N 09-17 00:40
PROVIDERS: ADMIT Family Medicine; ATTEND Hospitalist
PROC: 3E0S33Z Introduction of Anti-inflammatory into Epidural Space, Percutaneous Approach (ICD-10-PCS; principal; 2017-09-17)
DX: M51.16 Intervertebral disc disorders with radiculopathy, lumbar region (principal); M48.061 Spinal stenosis, lumbar region without neurogenic claudication; M06.9 Rheumatoid arthritis, unspecified; E11.9 Type 2 diabetes mellitus without complications; I10 Essential (primary) hypertension
CPT/HCPCS: 96374; 97116-GP; 97161-GP; 97165-GO; 97530-GO; A9585; J1100; J1170; J1815; J1885; J3010; J3301; J7512; Q9967

== ENCOUNTER → 2018-04-09 | Outpatient (CLI) | payer OTHER | LOC: FIMAGING 15:21 | PROVIDERS: ATTEND Family Medicine | DX: Z12.31 Encounter for screening mammogram for malignant neoplasm of breast (principal) ==

== ENCOUNTER 2018-05-10 16:45 | Observation (INO) | payer SELFPAY ==
[2018-05-10] MEDS ORDERED: NS 1,000 ML IV ONE ×2 (17:27)
[2018-05-10] MEDS ORDERED: fentaNYL 100 MCG/2 ML INJ IVP ONE (17:27)
[2018-05-10] MEDS ORDERED: ONDANSETRON 4 MG/2 ML VIAL IVP ONE (17:27)
--- NOTE | 2018-05-10 19:19 | EDPHY ---
H & P Stated Complaint: vomiting,diarrhea,bodyaches for 1 day Time Seen by Provider: 05/10/18 17:13 HPI/ROS: CHIEF COMPLAINT: Vomiting and diarrhea, headache HISTORY OF PRESENT ILLNESS: This is a 52-year-old female with the mid medical history that includes insulin-dependent diabetes and rheumatoid arthritis for which she takes methotrexate. She became ill last night with vomiting and diarrhea. She has had persistent vomiting and diarrhea throughout the day. She has been unable to eat or drink anything today. She has not taken any insulin, nausea she taken any of her other medications. She is not having significant abdominal pain. She denies dysuria. She has not been aware of fever. She does report a global headache. She has had no changes in her vision , no weakness, no numbness, no confusion. She denies neck pain or stiffness. No ill contacts. Patient is primarily Amharic speaking. Family members have been helpful with translation. REVIEW OF SYSTEMS: A ten system review of systems was performed and is negative with the exception of the items mentioned in the HPI. Past medical history: 1. Insulin-dependent diabetes 2. Hypertension 3. Rheumatoid arthritis on methotrexate 4. Chronic back pain Past surgical history: 1. Cholecystectomy 2. Lumbar surgery 3. Left shoulder surgery 4. Left back surgery Social history: She lives with her . She does not use tobacco products or alcohol. General Appearance: Alert. Vital signs reviewed. Initial heart rate 118 with a blood pressure 141/79. Temperature 37.6 degrees. Respiratory rate 22 at triage. Oxygen saturation 96% on room air. Eyes: Pupils equal and round, no conjunctival injection, no discharge. Anicteric. ENT, Mouth: Mucous membranes are moist, no oropharyngeal erythema or edema. Neck: No lymphadenopathy, supple. No meningeal signs. Respiratory: Lungs are clear to auscultation; no wheezes, rales, or rhonchi. Not tachypneic at the time of my evaluation. Cardiovascular: Tachycardic; no murmur, rub, or gallop. Gastrointestinal: Abdomen is soft and nontender, no masses or organomegaly, bowel sounds normal. Skin: Warm and dry, no rashes on exposed skin, normal color. Back: Nontender to palpation over the thoracolumbar spine. No CVAT. Extremities: No lower extremity edema, no calf tenderness or swelling. Neurological: Alert and oriented. Moving all four extremities easily and equally. Cranial nerves II through XII are examined and are intact (visual acuity not tested). Strength is 5 over 5 bilaterally with testing of all major motor groups. Sensation is intact to light touch over all 4 extremities. Psychiatric: Normal affect. - Personal History LMP (Females 10-55): Post Menopausal Current Tetanus Diphtheria and Acellular Pertussis (TDAP): Yes Tetanus Vaccine Date: 2008 - Medical/Surgical History Hx Asthma: No Hx Chronic Respiratory Disease: No Hx Diabetes: Yes Hx Cardiac Disease: No Hx Renal Disease: No Hx Cirrhosis: No Hx Alcoholism: No Hx HIV/AIDS: No Hx Splenectomy or Spleen Trauma: No Other PMH: PMHx: HTN, Rheumatoid arthritis,diabetes, back pain. PSHx: cholecystectomy, L shoulder surgery, L foot surgery, back surgery, - Social History Smoking Status: Never smoked Constitutional: Initial Vital Signs Temperature (C) 37.6 C 05/10/18 17:00 Heart Rate 118 H 05/10/18 17:00 Respiratory Rate 22 H 05/10/18 17:00 Blood Pressure 141/79 H 05/10/18 17:00 O2 Sat (%) 96 05/10/18 17:00 O2 Delivery Mode Room Air Allergies/Adverse Reactions: Shellfish *RETIRED-02/10/12 [Shellfish] Allergy (Severe, Verified 05/10/18 16:57 ) Anaphylaxis SHRIMP Allergy (Severe, Uncoded 09/16/17 16:10) Anaphylaxis Home Medications: Medication Instructions Recorded Methotrexate Sodium [Rheumatrex] 6 each PO SA 05/20/16 metFORMIN HCL [Glucophage 1000 mg] 1,000 mg PO BIDMEAL 05/20/16 predniSONE [Christina] 7 mg PO DAILY18 05/20/16 oxyCODONE/APAP 5/325 [Percocet 2 tab PO DAILY 09/16/17 5/325 (*)] Folic Acid [Folic Acid 1 MG (*)] 1 mg PO DAILY18 09/17/17 Insulin Aspart [novoLOG] 18 unit SC BIDMEAL 09/17/17 Insulin Detemir [Levemir] 20 units SQ DAILY 09/17/17 Insulin Detemir [Levemir] 30 unit SQ HS 09/17/17 Lisinopril [Zestril 20 mg (*)] 20 mg PO DAILY18 09/17/17 Simvastatin [Zocor] 20 mg PO DAILY18 09/17/17 oxyCODONE/APAP 5/325 [Percocet 1 tab PO HS PRN 09/17/17 5/325 (*)] Acetaminophen [Tylenol 325mg (*)] 650 mg PO Q4HRS PRN tab 09/18/17 Cyclobenzaprine [Flexeril 10 MG 10 mg PO BID PRN #20 tab 09/18/17 (*)] Gabapentin [Neurontin 300 MG (*)] 300 mg PO TID #90 cap 09/18/17 Ibuprofen [Motrin (*)] 600 mg PO TID PRN #60 tab 09/18/17 Medical Decision Making ED Course/Re-evaluation: 52-year-old insulin-dependent diabetic on methotrexate for RA presents with persistent vomiting and diarrhea throughout the day today. My initial concern was for diabetic ketoacidosis. She has no history of DKA. No one else is ill and she is not aware of eating any bad foods, however gastroenteritis is certainly a possibility with this history. Her abdomen is soft and nontender on exam and I do not suspect bowel obstruction or a surgical process. Her gallbladder has been removed. She is complaining of a global headache. She has no neurological complaints otherwise and has a normal neurological exam. Her neck is not stiff. She is not febrile. I do not suspect meningitis. I do not suspect subarachnoid hemorrhage. In the emergency department she was given 2 L IV fluid, Zofran IV, fentanyl IV. On reexamination her abdomen remains soft and nontender. Her headache is mildly improved but persists. If her nausea and vomiting improves, will try Tylenol for her headache. Initial lab values showed a potassium of 2.9 with a repeat potassium by I-STAT of 3.1. Beta hydroxybutyrate is elevated at 0.70. She has not had vomiting or diarrhea in the department. Her blood sugar is not markedly elevated. However, she will require hospitalization until we are certain that this illnesses past and she is able to resume her normal medications and normal diet. She is being admitted to the hospitalist service. - Data Points Laboratory Results: 05/10/18 05/10/18 17:31 17:29 POC Sodium 144 mEq/L mEq/L (135-145) POC Potassium 2.9 mEq/L L mEq/L (3.3-5.0) POC Chloride 102.0 mEq/L mEq/L (97-110) POC Total CO2 21 mEq/L L mEq/L (22-31) POC BUN 16 mg/dL mg/dL (7-23) POC Creatinine 0.7 mg/dL mg/dL (0.6-1.0) POC Glucose 162 mg/dL H mg/dL (70-100) POC Calcium 9.1 mg/dL mg/dL (8.5-10.4) Beta-Hydroxybutyrate 0.70 mmol/L H mmol/L (0.02-0.27) Medications Given: Discontinued Medications Fentanyl (Sublimaze) 75 mcg IVP EDNOW ONE Stop: 05/10/18 17:28 Last Admin: 05/10/18 17:59 Dose: 75 mcg Sodium Chloride (Ns) 1,000 mls @ 0 mls/hr IV EDNOW ONE; Wide Open PRN Reason: Protocol Stop: 05/10/18 17:28 Last Admin: 05/10/18 17:15 Dose: 1,000 mls Sodium Chloride (Ns) 1,000 mls @ 0 mls/hr IV EDNOW ONE; Wide Open PRN Reason: Protocol Stop: 05/10/18 17:28 Last Admin: 05/10/18 18:04 Dose: 1,000 mls Ondansetron HCl (Zofran) 4 mg IVP EDNOW ONE Stop: 05/10/18 17:28 Last Admin: 05/10/18 17:58 Dose: 4 mg Point of Care Test Results: Chemistry 05/10/18 17:31 POC Sodium 144 mEq/L mEq/L (135-145) POC Potassium 2.9 mEq/L L mEq/L (3.3-5.0) POC Chloride 102.0 mEq/L mEq/L (97-110) POC Total CO2 21 mEq/L L mEq/L (22-31) POC BUN 16 mg/dL mg/dL (7-23) POC Creatinine 0.7 mg/dL mg/dL (0.6-1.0) POC Glucose 162 mg/dL H mg/dL (70-100) POC Calcium 9.1 mg/dL mg/dL (8.5-10.4) Departure - Departure Disposition: [facility] Acute Clinical Impression: Acute gastroenteritis, Hypokalemia Headache Qualifiers: Headache type: unspecified Headache chronicity pattern: acute headache Intractability: not intractable Qualified Code(s): R51 - Headache Condition: Good
[2018-05-10] MEDS ORDERED: ONDANSETRON 4 MG/2 ML VIAL IVP PRN (21:19)
[2018-05-10] MEDS ORDERED: HYDROCODONE/APAP 5/325 TAB PO PRN (21:19)
[2018-05-10] MEDS ORDERED: ONDANSETRON DISINTEGRATING 4 MG TAB PO PRN (21:19)
[2018-05-10] MEDS ORDERED: PROMETHAZINE HCL 25 MG/ML INJ IVP PRN (21:19)
[2018-05-10] MEDS ORDERED: D50W 25 GM/50 ML VIAL IVP PRN (21:23)
[2018-05-10] MEDS ORDERED: NS 1,000 ML IV SCH (21:30)
[2018-05-10] MEDS ORDERED: GABAPENTIN 300 MG CAP PO SCH (22:00)
[2018-05-10] MEDS ORDERED: CYCLOBENZAPRINE 10 MG TAB PO PRN (22:18)
[2018-05-10] MEDS: ACETAMINOPHEN 325 MG TAB PO PRN (22:56)
--- NOTE | 2018-05-10 23:03 | PDGENHP ---
History and Physical - Chief Complaint Nausea vomiting diarrhea - History of Present Illness Source-patient is primarily [place]er-speaking. Am able to complete part of the interview in [place] her daughter is at bedside and provides interpretation per patient request. EMR was reviewed and case discussed with ED provider. HPI - this is a very pleasant 52-year-old female with past medical history significant for insulin-dependent diabetes 2, RA on steroids and NTX, chronic pain on chronic opiate therapy who presents emergency department today with complaints of 2 day history of nausea vomiting and diarrhea. Patient reports positive sick contact of her with similar symptoms he is currently recovering. She has not been able to tolerate anything p. O. For the last 24- 48 hours. She has not continued again any of her insulin. She reports some lower abdominal cramping. She denies any hematemesis. No melena or hematochezia. She does report a very significant headache across her forehead and at the base of her neck with that is very tender. She denies any neck stiffness. She does report some mild intermittent blurry vision. Sim intermittent numbness tingling in her left hand but no focal weakness. She denies any dysuria. She does report some increasing cough and sneezing recently. Patient also reports that she had a brief episode of left-sided chest pain after an episode of vomiting she has not had anything since that time. Patient has not had any additional vomiting or diarrhea since initial treatment in the ED. Patient reports that she did not take her weekly methotrexate yesterday. She is on daily dose of prednisone which she has been taking. History Information - Allergies/Home Medication List Allergies/Adverse Reactions: Shellfish *RETIRED-02/10/12 [Shellfish] Allergy (Severe, Verified 05/10/18 16:57 ) Anaphylaxis SHRIMP Allergy (Severe, Uncoded 09/16/17 16:10) Anaphylaxis Home Medications: Methotrexate Sodium [Rheumatrex] 6 each PO SA 05/20/16 [Last Taken 05/02/18] metFORMIN HCL [Glucophage 1000 mg] 1,000 mg PO BIDMEAL 05/20/16 [Last Taken 01/17 18:00] predniSONE [Christina] 7 mg PO DAILY18 05/20/16 [Last Taken 05/09/18 18:00] oxyCODONE/APAP 5/325 [Percocet 5/325 (*)] 2 tab PO DAILY PRN 09/16/17 [Last Taken 05/09/18 08:00] Folic Acid [Folic Acid 1 MG (*)] 1 mg PO DAILY18 09/17/17 [Last Taken 05/09/18 18:00] Insulin Aspart [novoLOG] 18 unit SC BIDMEAL 09/17/17 [Last Taken 05/09/18 18:00] Insulin Detemir [Levemir] 20 units SQ DAILY 09/17/17 [Last Taken 05/09/18 09:00] Insulin Detemir [Levemir] 30 unit SQ HS 09/17/17 [Last Taken 05/09/18 18:00] Lisinopril [Zestril 20 mg (*)] 20 mg PO DAILY18 09/17/17 [Last Taken 05/09/18 18 :00] Simvastatin [Zocor] 20 mg PO DAILY18 09/17/17 [Last Taken 05/09/18 18:00] Gabapentin [Neurontin 300 MG (*)] 300 mg PO DAILY@18 05/10/18 [Last Taken 18:00] Herbals/Supplements -Info Only 1 ea PO DAILY 05/10/18 [Last Taken Unknown] I have personally reviewed and updated: family history, medical history, social history, surgical history - Past Medical History degenerative disc disease, diabetes type 2 (Insulin-dependent), hypertension Additional medical history: RA, chronic back pain/sciatica - Surgical History Reports: cholecystectomy Additional surgical history: Cholecystectomy, x2, lumbar spine surgery , left shoulder surgery, left foot/ankle surgery x3, left inguinal hernia surgery - Family History Additional family history: RA, dm 2 - Social History Smoking Status: Never smoked Additional social history: Patient is lives with her spouse and children. Cor status-full. Review of Systems Review of Systems: ROS: 10pt was reviewed & negative except for what was stated in HPI & below Constitutional: Reports: chills, fever, other (No sweats.) EENMT: Reports: nose congestion, other (Sneezing, no sore throat.) Cardiac: Reports: chest pain (See HPI). Denies: edema, palpitations Respiratory: Reports: cough, shortness of breath (With increased pain and nausea vomiting. Not associated with exertion.) Gastrointestinal: Reports: vomitting, abdominal pain (Lower abdominal cramping) , diarrhea, nausea. Denies: black stools, rectal bleeding, abdominal distention Genitourinary: Reports: no symptoms Muscolosketal: Reports: back pain (Chronic back pain). Denies: muscle stiffness Skin: Reports: no symptoms Neurological: Reports: headache (Across forehead and suboccipital tension type headache), tingling (Left hand). Denies: tremors, weakness Hematologic/Lymphatic: Reports: no symptoms Physical Exam Physical Exam: Selected Entries 05/10/18 17:00 Blood Pressure Automatic Method Heart Rate 118 H Respiratory 22 H Rate O2 Sat (%) 96 Temperature (C) 37.6 C Blood Pressure 141/79 H Mean Arterial 99 Pressure (MAP) O2 Delivery Room Air Mode Temperature Oral Source Temp Pulse Resp BP Pulse Ox 37.1 C 97 16 128/98 H 93 05/10/18 22:54 05/10/18 22:54 05/10/18 22:54 05/10/18 22:54 05/10/18 22:54 O2 (L/minute) 3 Constitutional: no apparent distress, uncomfortable, other (NAD. Pleasant adult female lays quietly in bed. Her family is at bedside. She does appear quite fatigued and acutely ill but nontoxic.) Eyes: PERRL (Decreased reactivity to light bilaterally but symmetric.), anicteric sclera, EOMI, No scleral injection Ears, Nose, Mouth, Throat: dry mucous membranes, other (Dry cracking lips. Patient occasionally sneezes during interview.), No poor dentition Cardiovascular: no murmur, rub, or gallop, pulses symmetric bilaterally, tachycardia (Ninety), No edema Peripheral Pulses: 2+: dorsalis-pedis (R), dorsalis-pedis (L) Respiratory: no respiratory distress, no rales or rhonchi, clear to auscultation , other (Occasional dry cough.) Gastrointestinal: normoactive bowel sounds, tenderness (Abdomen is soft. Patient with some mild discomfort at the umbilicus. No rebound or guarding.), No guarding, No rebound, No distension Genitourinary: no bladder tenderness, No plaza in urethra Skin: warm, normal color, no rashes or abrasions, No rash Musculoskeletal: full muscle strength, other (Patient sits up independently. Moves all extremities.), No generalized weakness Neurologic: AAOx3, sensation intact bilaterally, other (Grossly nonfocal exam.) , No weakness, No facial droop Psychiatric: interacting appropriately, not encephalopathic, thought process linear, anxious (Patient is slightly anxious but pleasant and cooperative.) Lab Data & Imaging Review 05/10/18 21:43 POC Hgb 10.5 gm/dL (12.6-16.3) L 05/10/18 18:54 POC Hct 31 % (38-47) L 05/10/18 18:54 POC Sodium 144 mEq/L (135-145) 05/10/18 18:54 Sodium 140 mEq/L (135-145) 05/10/18 21:43 POC Potassium 3.1 mEq/L (3.3-5.0) L 05/10/18 18:54 Potassium 3.7 mEq/L (3.5-5.2) 05/10/18 21:43 POC Chloride 112 mEq/L (97-110) H 05/10/18 18:54 Chloride 114 mEq/L (97-110) H 05/10/18 21:43 Carbon Dioxide 19 mEq/l (22-31) L 05/10/18 21:43 POC Total CO2 21 mEq/L (22-31) L 05/10/18 17:31 Anion Gap 7 mEq/L (6-14) 05/10/18 21:43 POC BUN 15 mg/dL (7-23) 05/10/18 18:54 BUN 14 mg/dL (7-23) 05/10/18 21:43 Creatinine 0.7 mg/dL (0.6-1.0) 05/10/18 21:43 POC Creatinine 0.6 mg/dL (0.6-1.0) 05/10/18 18:54 Estimated GFR > 60 05/10/18 21:43 Glucose 146 mg/dL (70-100) H 05/10/18 21:43 POC Glucose 139 mg/dL (70-100) H 05/10/18 18:54 POC Calcium 9.1 mg/dL (8.5-10.4) 05/10/18 17:31 Calcium 7.8 mg/dL (8.5-10.4) L 05/10/18 21:43 Magnesium 1.3 mg/dL (1.6-2.3) L 05/10/18 21:43 Beta-Hydroxybutyrate 0.70 mmol/L (0.02-0.27) H 05/10/18 17:29 Assessment & Plan Assessment: Pleasant 52-year-old female with history DM 2 insulin-dependent, HTN, RA on steroids daily and empty X weekly, chronic pain on chronic opiate therapy presents emergency department with 2 day history of nausea vomiting diarrhea. #Acute gastroenteritis (Acute) - patient with positive sick contacts. Patient' s had similar symptoms and he is currently recovering. Patient received IV fluids and antiemetics in the emergency department with improvement in her pain. Continue with supportive care. Patient is also beginning to have some upper respiratory type symptoms. Respiratory PCR has been ordered. #Headache (Acute) - patient with tenderness to palpation over spasm in the suboccipital region that reproduces her headache. Heating pad, Flexeril be ordered p.r.n.. Resume patient's home pain medications. #Hypokalemia (Acute) - secondary to GI losses. Replacement has been ordered and repeat potassium is improved. Will monitor patient's electrolytes as well as her blood pressures that she is chronically on steroid therapy. Do not feel at this time that she requires a burst dose for adrenal crisis. Will plan to continue patient's usual daily dosing and consider up titration as needed based on reassessment. Will also check magnesium and replace if needed. #Dm 2 insulin-dependent controlled - resume patient's insulin regimen as her diet increases. ADA diet. Patient's beta hydroxybutyrate was minimally elevated. Will plan to recheck a level now that she is status post IV fluids as well as repeat BMP. I do not believe patient to be in DKA. #RA - holding path patient's methotrexate at this time. She is chronically on steroids and plan to continue as noted above. Chronic back pain - resume patient's Percocet. FEN - IV fluids to continue overnight as patient diet advances slowly. Electrolyte replacement as noted above. ADA diet ordered. PPX-SCDs. Overall low risk for VTE. Consider addition of Lovenox if patient should stay additional day otherwise at this time encourage mobilization as tolerated. Cor status-full Disposition-patient [place] [facility] [place] reassessment in the morning and management of her acute symptoms.
[2018-05-11 05:35] LABS: PLATELET COUNT 233 10^3/uL (150-400)
[2018-05-11] MEDS: ACETAMINOPHEN 325 MG TAB PO PRN (05:51)
[2018-05-11] MEDS: INSULIN LISPRO 100 UNIT/ML SC SCH ×3 (07:50→17:57)
[2018-05-11] MEDS ORDERED: CYCLOBENZAPRINE 10 MG TAB PO PRN (08:10)
[2018-05-11] MEDS: metFORMIN HCL 500 MG TAB PO SCH ×2 (08:35→17:54)
[2018-05-11] MEDS ORDERED: Herbals/Supplements -Info Only PO SCH (09:00)
[2018-05-11] MEDS ORDERED: INSULIN GLARGINE 100 UNITS/ML UNIT SC SCH ×2 (09:00→21:00)
--- NOTE | 2018-05-11 09:41 | ASMTCASEMG ---
Living Arrangements What is your living Answers: With Spouse arrangement? Who do you live with? Type Of Residence What kind of residence do Answers: Apartment you live in? Discharge Plan Comments Coordination Status Comments Notes: Patient is a 52yo woman with a hx of DM 2, insulin dependent who comes to [facility] with 2 day hx of nausea and vomiting, diarrhea and chest pains. Patient has been admitted for acute gastroenteritis, headache, hypokalemia, and IV fluids. Patient is currently OBS. No therapies ordered at this time. D/C plan TBD. CM will follow. Date Signed: 05/11/2018 09:40 AM Electronically Signed By:Asmita Dutta LCSW
[2018-05-11] MEDS: OXYCODONE/APAP 5/325 TAB PO PRN ×2 (10:06→17:54)
[2018-05-11] MEDS: predniSONE 5 MG TAB PO SCH ×2 (10:07→10:44)
[2018-05-11] MEDS: predniSONE 1 MG TAB PO SCH ×2 (10:07→10:44)
--- NOTE | 2018-05-11 12:06 | HOSPPROG ---
Hospitalist Progress Note Assessment/Plan: Pleasant 52-year-old female with history DM 2 insulin-dependent, HTN, RA on steroids daily and empty X weekly, chronic pain on chronic opiate therapy presents emergency department with 2 day history of nausea vomiting diarrhea. #Acute gastroenteritis - has similar symptoms at home -has some respiratory symptoms, Resp PCR is negative -low grade fever today, has some ongoing body aches #Headache #Hypokalemia (Acute) -replacement #Dm 2 insulin-dependent controlled -ADA diet -beta hydroxybutyrate is elevated at 0.70 *metabolic acidosis -most likely secondary to dehydration #RA - holding path patient's methotrexate at this time. -Methotrexate + steroids #Chronic back pain - resume patient's Percocet. #PLAN: Will advance diet from clears to see how she does Subjective: Dede said she is better, but has some aches. and headache. Objective: Vital Signs Temp Pulse Resp BP Pulse Ox 37.3 C 96 22 H 146/75 H 86 L 05/11/18 09:01 05/11/18 07:43 05/11/18 07:43 05/11/18 07:43 05/11/18 07:43 Microbiology 05/10/18 22:54 Respiratory Panel (PCR) - Final Nasal, Sinus - Swab No Organism Detected By Pcr Laboratory Results 05/11/18 04:51 05/11/18 04:51 05/10/18 05/11/18 05/12/18 05:59 05:59 05:59 Intake Total 2000 Output Total 700 Balance 1300 - Physical Exam Constitutional: no apparent distress, uncomfortable Eyes: PERRL Ears, Nose, Mouth, Throat: hearing normal Cardiovascular: regular rate and rhythym Respiratory: no respiratory distress Gastrointestinal: normoactive bowel sounds, tenderness (epigastric area) Skin: warm Neurologic: AAOx3 Psychiatric: interacting appropriately ICD10 Worksheet Patient Problems: Problems Problem Status Onset Acute gastroenteritis Acute Headache Acute Hypokalemia Acute Back pain Acute
[2018-05-11] MEDS ORDERED: NS 1,000 ML IV SCH (16:00)
[2018-05-11] MEDS ORDERED: LISINOPRIL 20 MG TAB PO SCH (18:00)
[2018-05-11] MEDS ORDERED: ATORVASTATIN CALCIUM 10 MG TAB PO SCH (18:00)
[2018-05-11] MEDS ORDERED: INSULIN ASPART NovoLOG 70/30 100 UNITS/ML SYR SC SCH (18:00)
[2018-05-11] MEDS ORDERED: GABAPENTIN 300 MG CAP PO SCH ×2 (18:00)
[2018-05-11] MEDS ORDERED: INSULIN LISPRO 100 UNIT/ML SC SCH (21:00)
[2018-05-11] MEDS ORDERED: INSULIN ASPART SC SCH (21:00)
[2018-05-12] MEDS: OXYCODONE/APAP 5/325 TAB PO PRN ×2 (01:26→10:34)
[2018-05-12] MEDS ORDERED: Insulin Aspart [Novolog Flexpen] SQ SCH (08:00)
[2018-05-12] MEDS: metFORMIN HCL 500 MG TAB PO SCH (08:24)
[2018-05-12] MEDS: INSULIN LISPRO 100 UNIT/ML SC SCH ×2 (08:27→12:49)
--- NOTE | 2018-05-12 10:09 | HOSPPROG ---
Hospitalist Progress Note Assessment/Plan: Pleasant 52-year-old female with history DM 2 insulin-dependent, HTN, RA on steroids daily and empty X weekly, chronic pain on chronic opiate therapy presents emergency department with 2 day history of nausea vomiting diarrhea. 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 #Acute gastroenteritis- Norovirus -one episode of diarrhea last night,none today -other family members had the same symptoms -has some respiratory symptoms, Resp PCR is negative #Headache -prn Tylenol #gi discomfort -Mylanta and Pepcid #Hypokalemia (Acute) -replacement #Dm 2 insulin-dependent controlled -ADA diet -beta hydroxybutyrate is elevated at 0.70 *metabolic acidosis -most likely secondary to dehydration #RA - holding path patient's methotrexate at this time. -Methotrexate + steroids #Chronic back pain - resume patient's Percocet. #PLAN: DC today after lunch if doing well Subjective: Dede is c/o headache and some gi distress. Objective: Vital Signs Temp Pulse Resp BP Pulse Ox 36.7 C 84 16 141/78 H 96 05/12/18 08:02 05/12/18 08:02 05/12/18 08:02 05/12/18 08:02 05/12/18 08:02 Microbiology 05/11/18 21:50 Gastrointestinal Tract Panel (PCR) - Final Stool Norovirus Gi/Gii 05/10/18 22:54 Respiratory Panel (PCR) - Final Nasal, Sinus - Swab No Organism Detected By Pcr Laboratory Results 05/11/18 04:51 05/11/18 04:51 05/11/18 05/12/18 05/13/18 05:59 05:59 05:59 Intake Total 1999 300 902 Output Total 700 200 Balance 1300 100 902 - Physical Exam Constitutional: uncomfortable Eyes: PERRL Ears, Nose, Mouth, Throat: hearing normal Cardiovascular: regular rate and rhythym Respiratory: no respiratory distress Gastrointestinal: normoactive bowel sounds, soft, non-tender abdomen Skin: warm Neurologic: AAOx3 Psychiatric: interacting appropriately ICD10 Worksheet Patient Problems: Problems Problem Status Onset Acute gastroenteritis Acute Headache Acute Hypokalemia Acute Back pain Acute
[2018-05-12] MEDS ORDERED: MAG HYDROX/AL HYDROX/SIMETH 30 ML UDCUP PO PRN (10:26)
[2018-05-12] MEDS ORDERED: FAMOTIDINE 20 MG TAB PO SCH (10:30)
[2018-05-12 12:11] VITALS: BP 122/64
--- NOTE | 2018-05-12 14:23 | GDS ---
DISCHARGE DIAGNOSES: 1. Acute gastroenteritis, norovirus. 2. Headache. 3. Gastrointestinal discomfort. 4. Hypokalemia. 5. Diabetes type 2, insulin dependent. 6. Metabolic acidosis. 7. Rheumatoid arthritis. 8. Chronic back pain. HISTORY OF PRESENT ILLNESS: Briefly, the patient is a 52-year-old female with a history of type 2 di abetes, hypertension, rheumatoid arthritis, on steroids, and has chronic pain, on chronic opiate ther apy. She had 2 days of nausea, vomiting, and diarrhea. Other family members at home had the same sy mptoms. She was admitted. Her GI PCR noted that she had norovirus. She was treated with supportive care. She will be discharged home with instructions with good handwashing and not to go out in [facility] until her symptoms resolve. HOSPITAL COURSE: 1. Acute gastroenteritis, much better today. Noted to have norovirus. 2. Headache, better with Tylenol. 3. GI discomfort. Gave her a dose of Mylanta. 4. Hypokalemia, on replacement. 5. Diabetes type 2. She is on an ADA diet. Her glucoses have been stable during her stay. Her bet a hydroxybutyrate is elevated at 0.70. 6. Metabolic acidosis secondary to dehydration. 7. RA. Hold her methotrexate. Recommended that she not take the methotrexate if she is having ongo ing diarrhea this coming Friday. 8. Chronic back pain. Resumed her home dosing of Percocet. DISCHARGE CONDITION: Stable. Blood pressure is 122/64, heart rate of 86, respiratory rate of 18, O2 sats on room air 90%. Temperature is 36.8 Celsius. DISCHARGE MEDICATIONS: Please see the EMR. DISCHARGE INSTRUCTIONS: 1. I told her to have good handwashing. 2. Stay well hydrated. Recommend she get Pedialyte or Gatorade to help with balancing her electroly scarlett. 3. If she develops fever, chills, worsening abdominal pain, and not able to take in adequate intake, return to the ER. Copy requested to: [facility] /[id number]/MODL
--- NOTE | 2018-05-12 21:29 | ASMTLACE ---
LACE Length of stay for Answers: 2 days current admission Acuity / Level of Answers: No Care: Did the patient have an inpatient admission? Comorbidities - select Answers: Diabetes (uncontrolled or all that apply controlled) Opioid dependence / Chronic pain Other Notes: HTN # of Emergency department Answers: 1-2 visits in the last 6 months Score: 9 Date Signed: 05/12/2018 11:30 AM Electronically Signed By:DOMINIQUE Bazan
--- NOTE | 2018-05-12 21:29 | ASMTCMCOM ---
CM Note CM Note Notes: CM spoke to YVONNE Guevara. Pt will d/c without any needs. CM available for changes. Plan: Independent Date Signed: 05/12/2018 11:28 AM Electronically Signed By:DOMINIQUE Bazan
== END 2018-05-12 15:13 | disposition home or self-care (01) ==
LOC: CED 16:45 → UNDOADMOB 18:39 → F3N 18:39 → CEDHOLD 18:39 → F3E 20:25
PROVIDERS: ADMIT Family Medicine; ATTEND Family Medicine
DX: A08.11 Acute gastroenteropathy due to Norwalk agent (principal); R51 Headache; E86.0 Dehydration; E87.6 Hypokalemia; E87.2 Acidosis; E11.9 Type 2 diabetes mellitus without complications; Z79.4 Long term (current) use of insulin; M06.9 Rheumatoid arthritis, unspecified; M54.9 Dorsalgia, unspecified; F11.20 Opioid dependence, uncomplicated
CPT/HCPCS: 80048-PO; 82435-PO; 82565-PO; 82947-PO; 84132-PO; 84295-PO; 84520-PO; 85014-PO; 96374; G0378; J1815; J2405; J3010; J7512

== ENCOUNTER 2018-09-21 21:52 | Emergency (ER) | payer MEDICAID, OTHER ==
[2018-09-21] MEDS ORDERED: NS 1,000 ML IV ONE ×2 (22:12→23:34)
[2018-09-21] MEDS ORDERED: ONDANSETRON 4 MG/2 ML VIAL IVP ONE (22:12)
--- NOTE | 2018-09-21 22:12 | EDPHY ---
H & P Stated Complaint: N/V/D, FEVER Source: Patient, Old records Exam Limitations: No limitations - Personal History Current Tetanus/Diphtheria Vaccine: Yes Tetanus Vaccine Date: 2008 - Medical/Surgical History Hx Asthma: No Hx Chronic Respiratory Disease: No Hx Diabetes: Yes Hx Cardiac Disease: No Hx Renal Disease: No Hx Cirrhosis: No Hx Alcoholism: No Hx HIV/AIDS: No Hx Splenectomy or Spleen Trauma: No Other PMH: PMHx: HTN, Rheumatoid arthritis,diabetes, back pain. PSHx: cholecystectomy, L shoulder surgery, L foot surgery, back surgery, - Social History Smoking Status: Never smoked Time Seen by Provider: 09/21/18 22:07 HPI/ROS: HPI: This is a 53-year-old female who presents with Chief Complaint: Nausea, vomiting, diarrhea Location: Abdomen Quality: Nausea, vomiting, diarrhea Duration: 1 day Signs and Symptoms: + subjective fever, + nausea, + vomiting, no hematemesis, no blood in stool, no abdominal bloating, + diarrhea, no back pain, no urinary symptoms, no vaginal bleeding/discharge, no indigestion, no chest pain, no shortness of breath Timing: Acute, intermittent episodes Severity: Moderate Context: Patient has a history type 2 diabetes mellitus-insulin dependent, rheumatoid arthritis methotrexate, presents accompanied by her daughter who is partially translating for with complaints of 1 day history of nausea, 1 episode of vomiting this evening and 3 episodes of diarrhea yesterday as well as 3 episodes of diarrhea today. She complains of a subjective fever, generalized fatigue, chills. Received influenza vaccine in 2018. Chart review shows that patient was admitted in May 2018 with acute gastroenteritis, norovirus, hypokalemia and metabolic acidosis secondary to dehydration. Patient took Tylenol this morning around 7:00 a.m. and ibuprofen around 8:00 p.m. History of cholecystectomy. Denies any actual abdominal pain only abdominal cramping with having a loose bowel movement. Took long-acting insulin of Lantus yesterday evening but has not taking any insulin today. No recent antibiotic use or long distance/foreign travel. No history of lung disease. Modifying Factors: None Comment: ROS: A comprehensive 10 system review of systems is otherwise negative aside from elements mentioned in the history of present illness. MEDICAL/SURGICAL/SOCIAL HISTORY: PMHx: HTN, Rheumatoid arthritis, insulin-dependent diabetes mellitus type 2, back pain PSHx: cholecystectomy, L shoulder surgery, L foot surgery, back surgery Social history: , employed as a cleaning lady. Nonsmoker. Denies alcohol or drug use. Family history noncontributory. CONSTITUTIONAL: Polite and cooperative, middle-aged female, nontoxic in appearance, awake and alert, no obvious distress HEENT: Atraumatic and normocephalic, PERRL, EOMI. Nares patent; no rhinorrhea; no nasal mucosal edema. Tympanic membranes clear. Oropharynx clear, no exudate and moist pink mucosa. Airway patent. No lymphadenopathy. No meningismus. Cardiovascular: Normal S1/S2, regular rate, regular rhythm, without murmur rub or gallop. PULMONARY/CHEST: Symmetrical and nontender. Clear to auscultation bilaterally. Good air movement. No accessory muscle usage. ABDOMEN: Soft, nondistended, nontender, no rebound, no guarding, no peritoneal signs, no masses or organomegaly. No CVAT. EXTREMITIES: 2/2 pulses, strength 5/5, no deformities, no clubbing, no cyanosis or edema. NEUROLOGICAL: no focal neuro deficits. GCS 15. SKIN: Warm and dry, no erythema. no rash. Good capillary refill. (Lisa Keller) Constitutional: Initial Vital Signs Temperature (C) 37.6 C 09/21/18 21:55 Heart Rate 116 H 09/21/18 21:55 Respiratory Rate 18 09/21/18 21:55 Blood Pressure 155/110 H 09/21/18 21:55 O2 Sat (%) 96 09/21/18 21:55 O2 Delivery Mode Room Air Allergies/Adverse Reactions: Shellfish *RETIRED-02/10/12 [Shellfish] Allergy (Severe, Verified 05/10/18 16:57 ) Anaphylaxis SHRIMP Allergy (Severe, Uncoded 09/16/17 16:10) Anaphylaxis Home Medications: Medication Instructions Recorded Methotrexate Sodium [Rheumatrex] 6 each PO SA 05/20/16 metFORMIN HCL [Glucophage 1000 mg] 1,000 mg PO BIDMEAL 05/20/16 predniSONE [Christina] 7 mg PO DAILY18 05/20/16 oxyCODONE/APAP 5/325 [Percocet 2 tab PO DAILY PRN 09/16/17 5/325 (*)] Folic Acid [Folic Acid 1 MG (*)] 1 mg PO DAILY18 09/17/17 Lisinopril [Zestril 20 mg (*)] 20 mg PO DAILY18 09/17/17 Simvastatin [Zocor] 20 mg PO DAILY18 09/17/17 Acetaminophen [Tylenol 325mg (*)] 650 mg PO Q4HRS PRN tab 09/18/17 Cyclobenzaprine [Flexeril 10 MG 10 mg PO BID PRN #20 tab 09/18/17 (*)] Gabapentin [Neurontin 300 MG (*)] 300 mg PO DAILY@18 05/10/18 Herbals/Supplements -Info Only 1 ea PO DAILY 05/10/18 Insulin Aspart [Novolog Flexpen] 18 unit SQ BIDMEAL 05/11/18 Insulin Detemir [Levemir] 20 unit SQ DAILY 05/11/18 Insulin Detemir [Levemir] 30 unit SQ HS 05/11/18 Famotidine [Pepcid 20 MG (*)] 20 mg PO DAILY tab 05/12/18 Medical Decision Making - Diagnostics Imaging Results: CT angio chest with IV contrast demonstrates limited assessment of the distal basilar pulmonary arteries due to respiratory motion, no pulmonary embolus identified, small hiatal hernia and diffuse mild esophageal wall thickening suggest reflux esophagitis, no focal consolidation pleural effusion or pneumothorax. Interpreted by direct Radiology. (Perri Paz) ED Course/Re-evaluation: Vital signs reviewed and show elevated blood pressure and tachycardia. Placed on registered nurse cardiac. IV access, laboratory studies, urinalysis ordered Abdomen is soft and nontender and doubt surgical process or need for imaging. I Suspect that this is a viral gastroenteritis Given 2 L normal saline, IV Toradol 15 mg and IV Zofran 4 mg 2256: Laboratory studies reviewed. WBC 10 K, H&H 11.7/37.2, no platelet dysfunction, potassium 3.7, creatinine 0.7, glucose 229. No signs of diabetic ketoacidosis, pancreatitis, elevated liver enzymes Magnesium 1.2; IV magnesium sulfate 2 g given 8: Urinalysis shows 1+ glucose, 1+ blood; no ed infection 2350: Notified by RN that repeat vital signs show O2 sats 89-91% on room. Lung sounds unremarkable. Chest x-ray ordered along with D-dimer due to tachycardia and new onset hypoxia. Placed on registered nurse cardiac. 1213: D-Dimer 2.9; unfortunately chest x-ray already performed; CTA chest ordered to evaluate for pulmonary embolism. 1217: Patient requesting to use the bathroom once more to urinate for the 2nd time while in the emergency room. Reports "feeling better." 1220: End of Shift. Signed over to Dr. Paz pending CTA Chest results and final disposition. This patient was seen under the supervision of my secondary supervising physician. I evaluated and cared for this patient with attending. (Lisa Keller) 2:00 a.m.- CT a performed and is unremarkable for any PE. There is concern for reflux esophagitis. Patient feels well and would like to go home. (Perri Paz) Differential Diagnosis: Differential diagnosis includes but is not limited to gastroenteritis, bowel obstruction, gastritis, GERD, peptic ulcer disease, dehydration, electrolyte imbalance, diabetic ketoacidosis. (Lisa Keller) - Data Points Laboratory Results: Laboratory Results 09/21/18 22:20 09/21/18 22:20 09/21/18 09/21/18 09/21/18 23:31 22:20 22:20 WBC RBC Hgb Hct MCV MCH MCHC RDW Plt Count MPV Neut % (Auto) Lymph % (Auto) [place] % (Auto) Eos % (Auto) Baso % (Auto) Nucleat RBC Rel Count Absolute Neuts (auto) Absolute Lymphs (auto) Absolute Monos (auto) Absolute Eos (auto) Absolute Basos (auto) Absolute Nucleated RBC Immature Gran % Immature Gran # D-Dimer 2.90 ug/mLFEU H ug/mLFEU (0.00-0.50) Sodium 135 mEq/L mEq/L (135-145) Potassium 3.7 mEq/L mEq/L (3.5-5.2) Chloride 102 mEq/L mEq/L (97-110) Carbon Dioxide 25 mEq/l mEq/l (22-31) Anion Gap 8 mEq/L mEq/L (6-14) BUN 14 mg/dL mg/dL (7-23) Creatinine 0.7 mg/dL mg/dL (0.6-1.0) Estimated GFR > 60 Glucose 229 mg/dL H mg/dL (70-100) Calcium 8.9 mg/dL mg/dL (8.5-10.4) Magnesium 1.2 mg/dL L mg/dL (1.6-2.3) Total Bilirubin 0.3 mg/dL mg/dL (0.1-1.4) Conjugated Bilirubin 0.3 mg/dL mg/dL (0.0-0.5) Unconjugated Bilirubin 0.0 mg/dL mg/dL (0.0-1.1) AST 19 IU/L IU/L (14-46) ALT 29 IU/L IU/L (9-52) Alkaline Phosphatase 115 IU/L IU/L (38-126) Total Protein 7.0 g/dL g/dL (6.3-8.2) Albumin 3.4 g/dL L g/dL (3.5-5.0) Lipase 175 IU/L IU/L (23-300) Beta-Hydroxybutyrate Urine Color PALE YELLOW Urine Appearance CLEAR Urine pH 7.0 (5.0-7.5) Ur Specific [place] 1.005 (1.002-1.030) Urine Protein NEGATIVE (NEGATIVE) Urine Ketones NEGATIVE (NEGATIVE) Urine Blood 1+ H (NEGATIVE) Urine Nitrate NEGATIVE (NEGATIVE) Urine Bilirubin NEGATIVE (NEGATIVE) Urine Urobilinogen NEGATIVE EU EU (0.2-1.0) Ur Leukocyte Esterase NEGATIVE (NEGATIVE) Urine RBC 1-3 /hpf /hpf (0-3) Urine WBC 1-3 /hpf /hpf (0-3) Ur Epithelial Cells NONE SEEN /lpf /lpf (NONE-1+) Urine Glucose 1+ H (NEGATIVE) 09/21/18 09/21/18 22:20 00:07 WBC 9.79 10^3/uL H 10^3/uL (3.80-9.50) RBC 4.16 10^6/uL L 10^6/uL (4.18-5.33) Hgb 11.7 g/dL L g/dL (12.6-16.3) Hct 37.2 % L % (38.0-47.0) MCV 89.4 fL fL (81.5-99.8) MCH 28.1 pg pg (27.9-34.1) MCHC 31.5 g/dL L g/dL (32.4-36.7) RDW 14.3 % % (11.5-15.2) Plt Count 315 10^3/uL 10^3/uL (150-400) MPV 9.3 fL fL (8.7-11.7) Neut % (Auto) 69.6 % % (39.3-74.2) Lymph % (Auto) 22.3 % % (15.0-45.0) [place] % (Auto) 5.8 % % (4.5-13.0) Eos % (Auto) 1.6 % % (0.6-7.6) Baso % (Auto) 0.5 % % (0.3-1.7) Nucleat RBC Rel Count 0.0 % % (0.0-0.2) Absolute Neuts (auto) 6.81 10^3/uL H 10^3/uL (1.70-6.50) Absolute Lymphs (auto) 2.18 10^3/uL 10^3/uL (1.00-3.00) Absolute Monos (auto) 0.57 10^3/uL 10^3/uL (0.30-0.80) Absolute Eos (auto) 0.16 10^3/uL 10^3/uL (0.03-0.40) Absolute Basos (auto) 0.05 10^3/uL 10^3/uL (0.02-0.10) Absolute Nucleated RBC 0.00 10^3/uL 10^3/uL (0-0.01) Immature Gran % 0.2 % % (0.0-1.1) Immature Gran # 0.02 10^3/uL 10^3/uL (0.00-0.10) D-Dimer Sodium Potassium Chloride Carbon Dioxide Anion Gap BUN Creatinine Estimated GFR Glucose Calcium Magnesium Total Bilirubin Conjugated Bilirubin Unconjugated Bilirubin AST ALT Alkaline Phosphatase Total Protein Albumin Lipase Beta-Hydroxybutyrate 0.06 mmol/L mmol/L (0.02-0.27) Urine Color Urine Appearance Urine pH Ur Specific [place] Urine Protein Urine Ketones Urine Blood Urine Nitrate Urine Bilirubin Urine Urobilinogen Ur Leukocyte Esterase Urine RBC Urine WBC Ur Epithelial Cells Urine Glucose Medications Given: Discontinued Medications Sodium Chloride (Ns) 1,000 mls @ 0 mls/hr IV EDNOW ONE; Wide Open PRN Reason: Protocol Stop: 09/21/18 22:13 Last Admin: 09/21/18 22:23 Dose: 1,000 mls Sodium Chloride (Ns) 1,000 mls @ 0 mls/hr IV EDNOW ONE; Wide Open PRN Reason: Protocol Stop: 09/21/18 23:35 Last Admin: 09/21/18 23:39 Dose: 1,000 mls Magnesium Sulfate (Magnesium Sulf 2 Gm (Premix)) 50 mls @ 50 mls/hr IV EDNOW ONE Stop: 09/22/18 00:33 Last Admin: 09/21/18 23:40 Dose: 50 mls Ketorolac Tromethamine (Toradol) 15 mg IVP EDNOW ONE Stop: 09/21/18 23:36 Last Admin: 09/21/18 23:43 Dose: 15 mg Oxymetazoline HCl (Afrin Nasal [place]) 2 sprays EACHNARE EDNOW ONE Stop: 09/22/18 01:04 Last Admin: 09/22/18 01:06 Dose: 2 puffs Departure - Departure Disposition: Home, Routine, Self-Care Clinical Impression: Hypomagnesemia, Type 2 diabetes mellitus treated with insulin, Gastroenteritis Condition: Good Instructions: Gastroenteritis (ED) Additional Instructions: Please return to the emergency department if your worse in any way. Referrals: Josselin Booth MD [Primary Care Provider] - As per Instructions Print Language: Mongolian
[2018-09-21 22:31] LABS: PLATELET COUNT 315 10^3/uL (150-400)
[2018-09-21] MEDS ORDERED: MAGNESIUM SULF 2 GM/WATER 50 ML IV ONE (23:34)
[2018-09-21] MEDS ORDERED: KETOROLAC 15 MG/1 ML SDV IVP ONE (23:35)
[2018-09-21] MEDS ORDERED: KETOROLAC 15 MG/1 ML SDV ONE (23:36)
[2018-09-21] MEDS ORDERED: MAGNESIUM SULF 2 GM/WATER 50 ML BAG IV ONE (23:36)
[2018-09-22] MEDS ORDERED: IOPAMIDOL (ISOVUE 370) 100 ML BTL IV ONE (00:15)
[2018-09-22] MEDS ORDERED: OXYMETAZOLINE 30 ML NASAL SPRAY EACHNARE ONE (01:03)
[2018-09-22 01:45] VITALS: BP 155/85
== END 2018-09-22 02:17 | disposition home or self-care (01) ==
DX: E83.42 Hypomagnesemia (principal); E11.9 Type 2 diabetes mellitus without complications; K52.9 Noninfective gastroenteritis and colitis, unspecified; E86.9 Volume depletion, unspecified
CPT/HCPCS: 96365; J1885; J3475; Q9967

== ENCOUNTER 2018-10-16 21:03 | Emergency (ER) | payer OTHER ==
--- NOTE | 2018-10-16 21:06 | EDPHY ---
H & P Time Seen by Provider: 10/16/18 21:05 - Personal History Tetanus Vaccine Date: 2008 - Medical/Surgical History Hx Asthma: No Hx Chronic Respiratory Disease: No Hx Diabetes: Yes Hx Cardiac Disease: No Hx Renal Disease: No Hx Cirrhosis: No Hx Alcoholism: No Hx HIV/AIDS: No Hx Splenectomy or Spleen Trauma: No Other PMH: PMHx: HTN, Rheumatoid arthritis,diabetes, back pain. PSHx: cholecystectomy, L shoulder surgery, L foot surgery, back surgery, - Social History Smoking Status: Never smoked Constitutional: Initial Vital Signs Temperature (C) 36.6 C 10/16/18 21:21 Heart Rate 99 10/16/18 21:21 Respiratory Rate 22 H 10/16/18 21:21 Blood Pressure 177/83 H 10/16/18 21:21 O2 Sat (%) 97 10/16/18 21:21 O2 Delivery Mode Room Air Allergies/Adverse Reactions: SHRIMP Allergy (Severe, Uncoded 10/16/18 21:26) Anaphylaxis Home Medications: Medication Instructions Recorded Methotrexate Sodium [Rheumatrex] 6 each PO SA 05/20/16 metFORMIN HCL [Glucophage 1000 mg] 1,000 mg PO BIDMEAL 05/20/16 predniSONE [Christina] 7 mg PO DAILY18 05/20/16 oxyCODONE/APAP 5/325 [Percocet 2 tab PO DAILY PRN 09/16/17 5/325 (*)] Folic Acid [Folic Acid 1 MG (*)] 1 mg PO DAILY18 09/17/17 Lisinopril [Zestril 20 mg (*)] 20 mg PO DAILY18 09/17/17 Simvastatin [Zocor] 20 mg PO DAILY18 09/17/17 Acetaminophen [Tylenol 325mg (*)] 650 mg PO Q4HRS PRN tab 09/18/17 Cyclobenzaprine [Flexeril 10 MG 10 mg PO BID PRN #20 tab 09/18/17 (*)] Gabapentin [Neurontin 300 MG (*)] 300 mg PO DAILY@18 05/10/18 Herbals/Supplements -Info Only 1 ea PO DAILY 05/10/18 Insulin Aspart [Novolog Flexpen] 18 unit SQ BIDMEAL 05/11/18 Insulin Detemir [Levemir] 20 unit SQ DAILY 05/11/18 Insulin Detemir [Levemir] 30 unit SQ HS 05/11/18 Famotidine [Pepcid 20 MG (*)] 20 mg PO DAILY tab 05/12/18 Ondansetron Odt [Zofran Odt 4 mg 4 mg PO Q4 PRN #10 tab 09/22/18 (*)] EPINEPHrine [Epipen 0.3 MG (RX)] 0.3 mg IM ONCE #1 syr 10/16/18 Famotidine [Pepcid 20 MG (OTC)] 20 mg PO DAILY #10 tab 10/16/18 predniSONE 40 mg PO DAILY #10 tab 10/16/18 Medical Decision Making ED Course/Re-evaluation: CHIEF COMPLAINT: Allergic reaction. HISTORY OF PRESENT ILLNESS: The patient is a 53 y/o female with a history of a shellfish allergy arriving via private vehicle for an allergic reaction today after eating sushi. After eating the sushi she developed swelling of her tongue and mouth as well as shortness of breath. No fever, headache, body aches, lightheadedness, chest pain , heart palpitations, cough, abdominal pain, urinary or bowel complaints, numbness, paresthesias. REVIEW OF SYSTEMS: A comprehensive 10 system review of systems is otherwise negative aside from elements mentioned in the history of present illness and medical decision making. PHYSICAL EXAM: HR, BP, O2 Sat, RR. Temp noted General Appearance: Alert, well hydrated, appropriate, and non-toxic appearing. Head: Atraumatic without scalp tenderness or obvious injury Eyes: Pupils equal, round, reactive to light and accommodation, EOMI, no trauma , no injection. Ears: Clear bilaterally, no perforation, normal landmarks Nose: Atraumatic, no rhinorrhea, clear. Throat: Tongue, lips, and uvula are swollen. There is no erythema or exudates, no lesions, normal tonsils, mucus membranes moist. Neck: Supple, 2+ carotid upstroke, nontender, no lymphadenopathy. Respiratory: No retractions, no distress, no wheezes, and no accessory muscle use. Lungs are clear to auscultation bilaterally. Cardiovascular: Regular rate and rhythm, no murmurs, rubs, or gallops. Bilateral carotid, radial, dorsalis pedis, and posterior tibial pulses intact. Good capillary refill all extremities. Gastrointestinal: Abdomen is soft, nontender, non-distended, no masses, no rebound, no guarding, no peritoneal signs. Musculoskeletal: Normal active ROM of all extremities, atraumatic. Neurological: Alert, appropriate, and interactive. The patient has normal DTRs and non-focal cranial nerves, motor, sensory, and cerebellar exam. Skin: No rashes, good turgor, no nodules on palpation. Past medical history: Hypertension, rheumatoid arthritis, diabetes, back pain Past surgical history: Cholecystectomy, left shoulder surgery, left foot surgery , back surgery Family history: Denies Social history: Family at bedside, lives in [place], DIAGNOSTICS/PROCEDURES/CRITICAL CARE TIME: Not indicated. DIFFERENTIAL DIAGNOSIS: The differential diagnosis included but was not limited to angioedema, anaphylaxis, anaphylactoid reaction, urticarial reaction, and other infectious causes for skin rash. MEDICAL DECISION MAKING: The patient is a 53 y/o female with a history of a shellfish allergy arriving via private vehicle for an allergic reaction today after eating sushi. On exam the patient has a swollen tongue, lips, and uvula. She is having an acute anaphylaxis reaction. 0.3mg IM Epinephrine, 50mg IV Zantac, 50mg IV Benadryl, 1mg IV Ativan, 125mg IV Solu-Medrol, and a Duo Neb administered. 2147: Reassessed patient, she is feeling much better medications. She does have a minor headache, 30mg IV Toradol administered prior to discharge. I have prescribed her Pepcid, Prednisone, and an EpiPen for her symptoms. I have also advised her to follow up with an investor. Return precautions provided; patient is comfortable with this plan. - Data Points Medications Given: Discontinued Medications Albuterol/Ipratropium (Duoneb) 3 ml IH EDNOW ONE Stop: 10/16/18 21:09 Last Admin: 10/16/18 21:19 Dose: 3 ml Diphenhydramine HCl (Benadryl Injection) 50 mg IVP EDNOW ONE Stop: 10/16/18 21:09 Last Admin: 10/16/18 21:14 Dose: 50 mg Epinephrine HCl (Epinephrine) 0.3 mg IM EDNOW ONE Stop: 10/16/18 21:09 Last Admin: 10/16/18 21:11 Dose: 0.3 mg Lorazepam (Ativan Injection) 1 mg IVP EDNOW ONE Stop: 10/16/18 21:09 Last Admin: 10/16/18 21:18 Dose: 1 mg Methylprednisolone Sodium Succinate (Solu-Medrol) 125 mg IVP EDNOW ONE Stop: 10/16/18 21:09 Last Admin: 10/16/18 21:16 Dose: 125 mg Ranitidine HCl (Zantac) 50 mg IVP EDNOW ONE Stop: 10/16/18 21:09 Last Admin: 10/16/18 21:17 Dose: 50 mg Departure - Departure Disposition: Home, Routine, Self-Care Clinical Impression: Acute anaphylaxis Qualifiers: Encounter type: initial encounter Qualified Code(s): T78.2XXA - Anaphylactic shock, unspecified, initial encounter Condition: Good Instructions: Anaphylaxis (ED), Allergic Rhinitis (ED), Allergies (ED), Allergy Testing (ED) Additional Instructions: 1. Take Pepcid and Prednisone as prescribed. 2. Follow-up with your primary doctor within 72 hours. 3. Use [id number] Benadryl as directed for itching. Return to the Emergency Department for shortness of breath, difficulty swallowing, difficulty breathing, worsening of rash, fever or other worsening of condition. 4. When symptoms have completely subsided, follow up with an investor soon as possible to determine the cause of the allergic reaction. 5. Use EpiPen in case of allergic emergency. Referrals: Elijah Olmstead MD [Medical Doctor] - As per Instructions Prescriptions: EPINEPHrine [Epipen 0.3 MG (RX)] 0.3 mg IM ONCE #1 syr Famotidine [Pepcid 20 MG (OTC)] 20 mg PO DAILY #10 tab predniSONE 40 mg PO DAILY #10 tab Report Scribed for: Jose Adame Report Scribed by: Jeanie Robles Date of Report: 10/16/18 Time of Report: 21:32
[2018-10-16] MEDS ORDERED: EPINEPHrine 1 MG/ML INJ ONE (21:07)
[2018-10-16] MEDS ORDERED: EPINEPHrine 1 MG/ML INJ IM ONE (21:08)
[2018-10-16] MEDS ORDERED: NS 1,000 ML IV ONE (21:08)
[2018-10-16] MEDS ORDERED: IPRATROPIUM/ALBUTEROL 3 ML DEYVIAL IH ONE (21:08)
[2018-10-16] MEDS ORDERED: LORazepam 2 MG/ML INJ IVP ONE (21:08)
[2018-10-16] MEDS ORDERED: methylPREDNISolone SOD SUCC 125 MG/2 ML VIAL IVP ONE (21:08)
[2018-10-16] MEDS ORDERED: RANITIDINE 50 MG/2 ML VIAL IVP ONE (21:08)
[2018-10-16] MEDS ORDERED: KETOROLAC 30 MG/1 ML SDV IVP ONE (21:46)
[2018-10-16 22:09] VITALS: BP 143/64
[2018-10-17] MEDS ORDERED: ALBUTEROL 3 ML DEYVIAL ONE (06:46)
[2018-10-17] MEDS ORDERED: methylPREDNISolone SOD SUCC 125 MG/2 ML VIAL ONE (06:46)
[2018-10-17] MEDS ORDERED: RANITIDINE 50 MG/2 ML VIAL ONE (06:46)
== END 2018-10-16 22:11 | disposition home or self-care (01) ==
DX: M79.89 Other specified soft tissue disorders (principal); T78.03XA Anaphylactic reaction due to other fish, initial encounter; I10 Essential (primary) hypertension; E11.9 Type 2 diabetes mellitus without complications; Z79.4 Long term (current) use of insulin
CPT/HCPCS: 96374; J0171; J1200; J1885; J2060; J2780; J2930; J7613